=== PATIENT | male | born 2000 | race Caucasian/White ===

== ENCOUNTER 2021-06-11 10:59 | Emergency (ER) | payer OTHER, SELFPAY ==
[2021-06-11 11:21] VITALS: BP 146/101; PULSE 92; RESP 18; TEMP 36.4; O2SAT 98
--- NOTE | 2021-06-11 11:58 | ED.URI ---
HPI - URI/Sore Throat General Chief Complaint: Upper Respiratory Infection Stated Complaint: Sore Throat,Cough Time Seen by Provider: 06/11/21 11:59 Source: patient, RN notes reviewed and old records reviewed Mode of arrival: ambulatory Limitations: no limitations History of Present Illness HPI Narrative: 20-year-old male who presents to [facility] with complaints of sore throat and cough which started 2 nights ago with increasing pain to throat especially aggravated by swallowing. Patient states that he is unknown if any fever but has had chills and sweats. Patient denies any chest pain or any shortness of breath, he denies any headache, nausea or vomiting or diarrhea.Patient reports that he ahs been taking Ibuprofen for his symptoms. MD elicited complaint: cough and sore throat Severity: mild (3) Pain scale (0-10): 3 Description of mucous: clear Able to tolerate fluids by mouth: Yes Exacerbating factors: swallowing Associated symptoms: chills, rhinorrhea, nasal congestion, sore throat and cough Treatments prior to arrival: ibuprofen Related Data Home Medications Medication Instructions Recorded Confirmed No Home Medications 06/11/21 06/11/21 Allergies Allergy/AdvReac Type Severity Reaction Status Date / Time No Known Allergies Allergy Verified 06/11/21 12:02 Review of Systems Review of Systems: CONSTITUTIONAL: unknown if fever,positive for chills, or sweats. EYES: Denies visual changes, redness, or discharge. ENT: Positive rhinorrhea, congestion, sore throat, no otalgia. CARDIOVASCULAR: Denies chest pain, palpitations, or edema. RESPIRATORY: positive for cough denies dyspnea. GASTROINTESTINAL: Denies abdominal pain, nausea, vomiting, or diarrhea. GENITOURINARY: Denies dysuria or hematuria. SKIN: Denies rash or itching. MUSCULOSKELETAL: Denies back pain, joint pain, or myalgia. NEUROLOGIC: Denies headache, numbness, or weakness. PSYCHIATRIC: Denies anxiety or depression. All systems reviewed & are unremarkable except as noted in HPI and below PMFSH Past Medical History Medical History (Updated 06/12/21 @ 00:01 by Franky Mccarthy) CRISTY (obstructive sleep apnea) Surgical History Surgical History (Updated 06/12/21 @ 00:15 by Shabnam Pierce NP) History of placement of ear tubes Social History Social History (Updated 06/12/21 @ 00:14 by Shabnam Pierce NP) Smoking status: Never smoker Alcohol intake: current Alcohol use details: social Substance use: never Living arrangements: with family Gender identity (if verbalized by the patient): Male Comments At time of signature, agree with nursing past medical, surgical, social and family history. There is no relevant family history pertinent to the presenting complaint Exam Narrative: GENERAL: Well-appearing, well-nourished,obese and in no acute distress. HEAD: Normocephalic, atraumatic. EYES: PERRLA and EOMI. ENT: Nares red with clear rhinorrhea no epistaxis. Mucous membranes moist.TM's normal with good light reflex, throat red with noted tonsil swelling and redness, some post nasal drainage present NECK: Supple.lymphadenopathy noted. CHEST: Clear to auscultation. No respiratory distress.SAO2 98% on room air, cough noted. HEART: Regular rate and rhythm. No murmur heard. Normal peripheral pulses. ABDOMEN: Soft, nontender, nondistended, normal active bowel sounds. EXTREMITIES: Normal range of motion. No edema. SKIN: Warm, dry, no rash. NEURO: No focal deficits. Alert and oriented x3. Course Course Level of Care: Express Care Visit Vital Signs Vital signs: Vital Signs Temperature 36.4 C L 06/11/21 11:21 Pulse Rate 92 06/11/21 11:21 Respiratory Rate 18 06/11/21 11:21 Blood Pressure 146/101 H 06/11/21 11:21 Pulse Oximetry 98 06/11/21 11:21 Temperature 36.4 C L 06/11/21 11:21 Pulse Rate 92 06/11/21 11:21 Respiratory Rate 18 06/11/21 11:21 Blood Pressure 146/101 H 06/11/21 11:21 Pulse Oximetry 98
== END 2021-06-11 12:20 | disposition home or self-care (01) ==
PROVIDERS: Emergency Provider Registered Nurse
DX: J02.0 Streptococcal pharyngitis (principal); G47.33 Obstructive sleep apnea (adult) (pediatric)
CPT/HCPCS: 87880; 99213; G0463

== ENCOUNTER 2023-10-26 17:15 | Emergency (ER) | payer OTHER, SELFPAY ==
[2023-10-26 17:29] VITALS: BP 129/74; PULSE 99; RESP 18; TEMP 37; O2SAT 98
[2023-10-26 17:30] VITALS: BP 129/74; PULSE 99; RESP 18; TEMP 37; O2SAT 98
--- NOTE | 2023-10-26 17:46 | ED.ABDPAIN ---
HPI - Abdominal Pain General Chief Complaint: Abdominal Pain Stated Complaint: lower lt abdominal pain Time Seen by Provider: 10/26/23 17:36 Source: patient and RN notes reviewed Mode of arrival: ambulatory Limitations: no limitations History of Present Illness HPI narrative: Patient presents today with a 1.5 hour history of left lower quadrant tenderness and sweats. Denies any additional symptoms to include nausea, vomiting, diarrhea, urinary symptoms. Last bowel movement was normal this morning. Currently rates his pain 4/10, but this increases significantly with any movement. He has not tried any [id number] medication for symptoms prior to arrival. No history of abdominal surgeries or conditions. Related Data Home Medications Medication Instructions Recorded Confirmed No Home Medications 06/11/21 10/26/23 Allergies Allergy/AdvReac Type Severity Reaction Status Date / Time No Known Allergies Allergy Verified 10/26/23 17:30 Review of Systems Review of Systems: CONSTITUTIONAL: Denies body aches, fever, chills.+ sweats EYES: Denies visual changes, redness, or discharge. ENT: Denies rhinorrhea, congestion, sore throat, or otalgia. CARDIOVASCULAR: Denies chest pain, palpitations, or edema. RESPIRATORY: Denies cough or dyspnea. GASTROINTESTINAL: Denies nausea, vomiting, or diarrhea.+ abdominal pain GENITOURINARY: Denies dysuria or hematuria. SKIN: Denies rash, itching, or wounds. MUSCULOSKELETAL: Denies back pain, joint pain, or myalgia. NEUROLOGIC: Denies headache, numbness, tingling, or weakness. PSYCH: Denies depression or anxiety. [facility] Past Medical History Medical History CRISTY (obstructive sleep apnea) Surgical History Surgical History History of placement of ear tubes Social History Social History Smoking status: Never smoker Alcohol intake: current Alcohol use details: social Substance use: never Living arrangements: with family Gender identity (if verbalized by the patient): Male Comments At time of signature, I have reviewed and agree with nursing past medical, surgical, social and family history unless otherwise noted. Please see nursing chart for further information. There is no relevant family history pertinent to the presenting complaint Exam Narrative: GENERAL: Well-appearing, well-nourished, and in no acute distress. Diaphoretic HEAD: Normocephalic, atraumatic. EYES: EOMI. No redness or drainage. Conjunctivae normal. ENT: Mucous membranes pink and moist. NECK: Normal AROM. CHEST: No respiratory distress. Clear to auscultation. HEART: Regular rate and rhythm. No murmur appreciated. Normal peripheral pulses. ABDOMEN: Soft, nondistended, normal active bowel sounds. Left lower abdominal tenderness with rebound. EXTREMITIES: Normal range of motion. No edema. SKIN: Warm, dry, no rash. Capillary refill normal. Normal skin turgor. NEURO: No focal deficits. Alert and oriented x3. Gait steady. PSYCH: Normal affect. No signs of depression or anxiety. Course Course Level of Care: Express Care Visit Vital Signs Vital signs: Vital Signs Temperature 98.6 F 10/26/23 17:29 Pulse Rate 99 10/26/23 17:29 Respiratory Rate 18 10/26/23 17:29 Blood Pressure 129/74 10/26/23 17:29 Pulse Oximetry 98 10/26/23 17:29 Oxygen Delivery Room Air 10/26/23 17:29 Temperature 98.6 F 10/26/23 17:30 Pulse Rate 99 10/26/23 17:30 Respiratory Rate 18 10/26/23 17:30 Blood Pressure 129/74 10/26/23 17:30 Pulse Oximetry 98 10/26/23 17:30 Oxygen Delivery Room Air 10/26/23 17:30 Reviewed Transfer Transfered to: [place] Transportation: Other (Private vehicle) Transfer rationale: Abdominal pain Accepting physician: Joseph MDM - Abdominal Pain MDM [place]
== END 2023-10-26 17:45 | disposition short-term general hospital (02) ==
PROVIDERS: Emergency Provider Nurse Practitioner; Referring Provider Emergency Medicine
DX: R10.32 Left lower quadrant pain (principal)
CPT/HCPCS: 99212; G0463

== ENCOUNTER 2023-10-26 18:00 | Emergency (ER) | payer OTHER, SELFPAY ==
--- NOTE | ~2023-10-26 | CT_ITS ---
CT of the Abdomen and Pelvis: Indication: Abdominal pain Technique: 2.5 mm axial scans were obtained through the abdomen and pelvis following intravenous adm inistration of 100 cc of Omnipaque 350. Dose reduction technique was used on this scan by utilizing a utomated exposure control and iterative reconstruction technique. The dose-length product (DLP) was 1 856.14 mGy-cm. Findings: Scans through the lung bases demonstrate a 5 mm right basilar pulmonary nodule (axial imag e 26).. There is diffuse hepatic steatosis. The spleen, pancreas, gallbladder, adrenals and kidneys are withi n normal limits. No evidence of aortic aneurysm. No lymphadenopathy. There is focal inflammatory change at the proximal sigmoid colon adjacent to several diverticula with mild wall thickening, compatible with acute mild diverticulitis. No abscess or free air. No bowel ob struction. Images through the pelvis were performed. Urinary bladder unremarkable. No pelvic mass seen. No ascit es. Impression: Acute sigmoid diverticulitis, as detailed above. No abscess or free air. Diffuse hepatic steatosis. 5 mm right basilar pulmonary nodule. According to Fleischner Society criteria, for a low-risk patient , no further follow-up required. For a high-risk patient, consider 12 month follow-up CT. Reviewed, dictated and finalized at location . Impression: Acute sigmoid diverticulitis, as detailed above. No abscess or free air. Diffuse hepatic steatosis. 5 mm right basilar pulmonary nodule. According to Fleischner Society criteria, for a low-risk patient, no further follow-up required. For a high-risk patient, consider 12 month follow-up CT.
[2023-10-26 18:09] VITALS: BP 134/74; PULSE 98; RESP 18; TEMP 36.6; O2SAT 99
[2023-10-26 20:25] LABS: Add Urine Microscopic? NO; Appearance Urine Clear (Clear); Bilirubin Urine Negative (Negative); Blood Urine Negative (Negative); Color Urine Yellow (Yellow); Glucose Urine UA Negative (Negative); Ketones Urine Negative (Negative); Leukocyte Esterase Ur Negative LEU/UL (Negative); Nitrate Urine Negative (Negative); Protein Urine Negative (Negative); Specific Grav Ur 1.021 (1.001-1.035); Urobilinogen Urine 0.2 mg/dL (<2.0); pH Urine 5.5 (5.0-9.0)
[2023-10-26 20:26] LABS: Basophils Absolute Auto 0.1 K/mm3 (0.0-0.1); Basophils Percent Auto 0.3 % (0.2-1.2); Eosinophils Percent Auto 0.1 % (0-4.4); Hematocrit 45.8 % (42.0-52.0); Hemoglobin 15.8 g/dL (14.0-18.0); Immature Granulocyte Absolute 0.08 K/mm3 (0.00-0.031); Immature Granulocyte Percent A 0.4 % (0-0.5); Lymphocytes Absolute Auto 1.27 K/mm3 (0.9-3.2); Lymphocytes Percent Auto 6.9 % (18.3-44.2); Mean Corpuscular HGB Conc 34.5 g/dl (32-36); Mean Corpuscular Volume 95.6 fl (80-100); Mean Platelet Volume 10.1 fl (7.4-10.4); Monocytes Absolute Auto 0.7 K/mm3 (0.1-0.6); Monocytes Percent Auto 3.7 % (2.6-8.5); Neutrophils Absolute Auto 16.3 K/mm3 (1.3-6.7); Neutrophils Percent Auto 88.6 % (45.5-73.1); Platelet Count Result 226 k/mm3 (150-375); Red Blood Count 4.79 M/mm3 (4.6-6.20); Red Cell Distribution Width 13.3 % (11.5-14.5); White Blood Count 18.4 K/mm3 (4.5-10.0)
[2023-10-26 20:37] LABS: Alanine Aminotransferase 135 U/L (6-50); Albumin Level 4.8 g/dL (3.5-5.1); Alkaline Phosphatase 59 U/L (38-126); Anion Gap 14 mmol/L (4-12); Aspartate Amino Transferase 104 U/L (17-59); Bilirubin,Total 0.9 mg/dL (0.2-1.3); Blood Urea Nitrogen 14 mg/dL (9-20); Calcium 9.3 mg/dL (8.4-10.2); Carbon Dioxide 23 mmol/L (22-30); Chloride 99 mmol/L (98-107); Estimated CRCL calculation 142 ml/min; Estimated Glomerular Filt Rate > 60; Glucose 125 mg/dL (65-110); Lipase 56 U/L (23-300); Potassium 4.6 mmol/L (3.4-5.0); Sodium 136 mmol/L (137-145)
[2023-10-26 21:46] VITALS: BP 153/86; PULSE 106; RESP 18; TEMP 37.3; O2SAT 98
--- NOTE | 2023-10-26 22:48 | ED.GENADULT ---
HPI - General Adult General Chief complaint: Abdominal Pain Stated complaint: LLQ pain Time Seen by Provider: 10/26/23 21:49 History of Present Illness HPI narrative: patient 23-year-old gentleman who presents emergency department with chief complaint of left lower quadrant pain. The patient reports pain started approximately 2 hours ago reports the pain is worse when he vomits denies nausea vomiting or diarrhea denies fever. Patient reports the pain is worsened whenever he hip bumps on the vehicle patient reports no prior abdominal surgery Related Data Allergies Allergy/AdvReac Type Severity Reaction Status Date / Time No Known Allergies Allergy Verified 10/26/23 18:00 Review of Systems Review of Systems: A 10 system review of systems was completed on the patient and is negative except for what is stated in the HPI. Nursing and ancillary documentation was reviewed. PMFSH Past Medical History Medical History CRISTY (obstructive sleep apnea) Surgical History Surgical History History of placement of ear tubes Social History Social History Smoking status: Never smoker Alcohol intake: current Alcohol use details: social Substance use: never Living arrangements: with family Gender identity (if verbalized by the patient): Male Exam Narrative: GENERAL: Well-appearing, well-nourished, and in no acute distress. HEAD: Normocephalic, atraumatic. EYES: PERRLA and EOMI. ENT: Nares clear, no rhinorrhea or epistaxis. Mucous membranes moist. NECK: Supple. CHEST: Clear to auscultation. No respiratory distress. HEART: Regular rate and rhythm. No murmur heard. Normal peripheral pulses. ABDOMEN: Soft, tenderness to palpation left lower quadrant, nondistended, normal active bowel sounds. EXTREMITIES: Normal range of motion. No edema. SKIN: Warm, dry, no rash. NEURO: No focal deficits. Alert and oriented x3. PSYCH: Normal mood and affect. Course Vital Signs Vital signs: Vital Signs Temperature 36.6 C 10/26/23 18:09 Pulse Rate 98 10/26/23 18:09 Respiratory Rate 18 10/26/23 18:09 Blood Pressure 134/74 10/26/23 18:09 Pulse Oximetry 99 10/26/23 18:09 Temperature 37.3 C 10/26/23 21:46 Pulse Rate 103 H 10/26/23 23:52 Respiratory Rate 13 10/26/23 23:52 Blood Pressure 145/76 H 10/26/23 23:52 Pulse Oximetry 99 10/26/23 23:52 Medical Decision Making MDM Narrative Medical decision making narrative: differential diagnosis includes diverticulitis, colitis, intra-abdominal infection, intra-abdominal abscess, appendicitis laboratory studies were obtained on the patient showed white count 18.4 electrolytes are within normal limits AST and ALT were slightly elevated at 104 and 135 respectively lipase was normal CT scan showed evidence of acute diverticulitis without abscess the patient is feeling much better and like to try outpatient therapy. The patient was started on Cipro and Flagyl Vital Signs Vital Signs: Vital Signs Temperature 36.6 C 10/26/23 18:09 Pulse Rate 98 10/26/23 18:09 Respiratory Rate 18 10/26/23 18:09 Blood Pressure 134/74 10/26/23 18:09 Pulse Oximetry 99 10/26/23 18:09 Temperature 37.3 C 10/26/23 21:46 Pulse Rate 103 H 10/26/23 23:52 Respiratory Rate 13 10/26/23 23:52 Blood Pressure 145/76 H 10/26/23 23:52 Pulse Oximetry 99 10/26/23 23:52 Lab Data 10/26/23 20:10 10/26/23 20:10 Labs: Lab Results 10/26/23 10/26/23 Range/Units 20:10 20:14 WBC 18.4 H (4.5-10.0) K/mm3 RBC 4.79 (4.6-6.20) M/mm3 Hgb 15.8 (14.0-18.0) g/dL Hct 45.8 (42.0-52.0) % MCV 95.6 (80-100) fl MCH 33.0 (26-34) pg MCHC 34.5 (32-36) g/dl RDW 13.3 (11.5-14.5) % Plt Count 226
[2023-10-26] MEDS: SODIUM CHLORIDE 0.9% IV 1,000 ML 999 ML IV CONT (23:19)
--- NOTE | 2023-10-26 23:45 | PC.NURSE ---
this rn assumed care of patient. this rn took patient report from CONSTANTINE Grossman.
[2023-10-26 23:52] VITALS: BP 145/76; PULSE 103; RESP 13; O2SAT 99
[2023-10-27] MEDS: metroNIDAZOLE 500 MG TABLET PO (01:46)
[2023-10-27] MEDS: CIPROFLOXACIN 500 MG TAB PO (01:46)
[2023-10-27 01:49] VITALS: BP 156/71; PULSE 98; RESP 20; O2SAT 100
== END 2023-10-27 01:49 | disposition home or self-care (01) ==
PROVIDERS: Emergency Provider Emergency Medicine
DX: K57.32 Diverticulitis of large intestine without perforation or abscess without bleeding (principal); G47.33 Obstructive sleep apnea (adult) (pediatric); K76.0 Fatty (change of) liver, not elsewhere classified; R91.1 Solitary pulmonary nodule
CPT/HCPCS: 36415; 74177; 80053; 81003; 83690; 85025; 96360; 96361; 99284; A9270; J7030; Q9967

== ENCOUNTER 2023-12-30 08:38 | Outpatient (CLI) | payer OTHER, SELFPAY ==
--- NOTE | ~2023-12-30 | CT_ITS ---
CT of the Abdomen and Pelvis: Indication: Diverticular Technique: 2.5 mm axial scans were obtained through the abdomen and pelvis following intravenous adm inistration of 100 cc of Omnipaque 350. Dose reduction technique was used on this scan by utilizing a utomated exposure control and iterative reconstruction technique. The dose-length product (DLP) was 1 797.34 mGy-cm. COMPARISON: 10/26/2023 Findings: Scans through the lung bases are unremarkable. There is diffuse hepatic steatosis. The spleen, pancreas, gallbladder, adrenals and kidneys are withi n normal limits. No evidence of aortic aneurysm. No lymphadenopathy. There is inflammatory change at the proximal sigmoid colon compatible with acute diverticular disease . Probable small focal contained microperforation or abscess adjacent, measuring 1.7 cm in size (axia l image 141). No bowel obstruction. Images through the pelvis were performed. Urinary bladder unremarkable. No pelvic mass seen. No ascit es. Impression: Acute diverticulitis of the proximal sigmoid colon with 1.7 cm small abscess or contained microperfor ation adjacent. Reviewed, dictated and finalized at location . Impression: Acute diverticulitis of the proximal sigmoid colon with 1.7 cm small abscess or contained microperforation adjacent.
== END 2023-12-30 08:39 | disposition home or self-care (01) ==
PROVIDERS: PCP Emergency Medicine; Visit Provider Emergency Medicine
DX: K57.32 Diverticulitis of large intestine without perforation or abscess without bleeding (principal)
CPT/HCPCS: 74177; Q9967

== ENCOUNTER 2024-02-05 10:14 | Outpatient (CLI) | payer OTHER, SELFPAY ==
--- NOTE | ~2024-02-05 | CT_ITS ---
CT of the Abdomen and Pelvis: Indication: Diverticulitis Technique: 2.5 mm axial scans were obtained through the abdomen and pelvis following intravenous adm inistration of 100 cc of Omnipaque 350. Dose reduction technique was used on this scan by utilizing a utomated exposure control and iterative reconstruction technique. The dose-length product (DLP) was 1 447.38 mGy-cm. COMPARISON: 12/30/2023 Findings: Scans through the lung bases are unremarkable. The liver, spleen, pancreas, gallbladder, adrenals and kidneys are within normal limits. No evidence of aortic aneurysm. No lymphadenopathy. There is mild inflammatory change adjacent to diverticula at the proximal sigmoid colon, compatible d iverticulitis, stable from prior exam. Stable suspected contained microperforation or small abscess.. No bowel obstruction. Images through the pelvis were performed. Urinary bladder unremarkable. No pelvic mass seen. No ascit es. Impression: Overall, no change from prior exam. Diverticulitis at the proximal sigmoid colon with stable possible small contained microperforation versus abscess. Reviewed, dictated and finalized at [facility]. CLASSER Impression: Overall, no change from prior exam. Diverticulitis at the proximal sigmoid colo n with stable possible small contained microperforation versus abscess.
== END 2024-02-05 10:15 | disposition home or self-care (01) ==
PROVIDERS: PCP Emergency Medicine; Visit Provider Surgery
DX: K57.21 Diverticulitis of large intestine with perforation and abscess with bleeding (principal)
CPT/HCPCS: 74177; Q9967

== ENCOUNTER 2024-09-06 17:44 | Inpatient (IN) | payer OTHER, SELFPAY ==
--- NOTE | ~2024-09-06 | CT_ITS ---
CLINICAL INDICATION: Left lower quadrant pain COMPARISON: 02/05/2024. TECHNIQUE: Multiple contiguous axial images of the abdomen and pelvis were performed following the ad ministration of with 100 mL Omnipaque-350 intravenous contrast The dose-length product (DLP) was 1495.60 mGy-cm. Automated exposure control and iterative reconstruction technique were employed. FINDINGS/OBSERVATIONS: Visualized lower thorax: The bilateral lung bases are clear. The heart is of normal size, without pericardial effusion. Small hiatal hernia is present. Liver: The liver demonstrates homogeneous enhancement and is not enlarged. Gallbladder and biliary system: The gallbladder is only minimally distended, and otherwise unremarkable. Pancreas: The pancreas enhances homogeneously without ductal dilatation. Spleen: The spleen enhances homogeneously and is not enlarged. Kidneys: The bilateral kidneys enhance symmetrically without hydronephrosis or renal calculi. Adrenal glands: Unremarkable. Gastrointestinal tract: Edematous mural thickening within the sigmoid colon with multiple diverticula and surrounding inflamm atory change. This inflammatory response extends into the central pelvis, involving the mesentery and multiple loops of adjacent small bowel. A contained perforation is identified (axial series, images 135 through 153) with surrounding phlegmo nous change, without discrete abscess formation (at this time). Appendix: The appendix is of normal caliber (axial series, images 115 through 120). Vasculature: Unremarkable. Lymph nodes: No pathologically enlarged or morphologically suspicious lymph nodes within the retroperitoneum or at the root of the mesentery. Pelvic structures: The bladder is distended, with mural thickening and surrounding inflammatory change. The prostate gland is not enlarged. Body wall and musculoskeletal: No significant degenerative disease within the lower thoracic or lumbosacral spine. IMPRESSION: Acute sigmoid diverticulitis with a contained perforation and surrounding phlegmonous change, without a drainable fluid collection (at this time). Short-term follow-up is recommended. Reviewed, dictated and finalized at location A. IMPRESSION: Acute sigmoid diverticulitis with a contained perforation and surrounding phleg monous change, without a drainable fluid collection (at this time). Short-term follow-up is recommended.
--- OUTSIDE RECORDS SUMMARY | 2024-09-06 17:46 | XMS_ITS | Encounter Summary ---
Author Organization [facility] Healthcare Address [address] [place] [address] Care Team Providers Care Curbstone Setter Name Role Phone Marcel Calle Primary Care Provid er Reason for Visit * Reason Comments Abdominal Cramping Abdominal cramping x 3 days 100.4 temp last pm Encounter Details Date Type Department Care Team (Late st Contact Info) Description 09/06/2024 5:15 PM CDT Office Visit [facility] at [address] [phone] Elkin Bhatti NP [address] [place] [address] [address] [place] [address] Abdominal pain (Primary Dx); Elevated blood pressure reading in office without diagnosis of hypertension; Left lower quadrant abdominal tenderness without rebound tenderness; Tachycardia Social History Tobacco Use Types Packs/Day Years Used Date Smoking Tobacco: Never Assessed Sex and Gender Information Value Date Recorded Sex Assigned at Not on file 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[place] Gender Identity Not on file Sexual Orientation Not on file documented as of this encounter Last Filed Vital Signs Vital Sign Reading Time Taken Comments Blood Pressure 152/84 09/06/2024 5:05 PM CDT Pulse 108 09/06/2024 5:19 PM CDT Temperature 37.6 C (99.7 F) 09/06/2024 5:05 PM CDT Respiratory Rate 22 09/06/2024 5:19 PM CDT Oxygen Saturation 99% 09/06/2024 5:05 PM CDT Inhaled Oxygen Concentration - - Weight 143.8 kg (317 lb) 09/06/2024 5:05 PM CDT Height - - Body Mass Index - - documented in this encounter Plan of Treatment Not on file documented as of this encounter Visit Diagnoses Diagnosis Abdominal pain- Primary Abdominal pain, unspecified site Elevated blood pressure reading in office without diagnosis of hypertension Left lower quadrant abdominal tenderness without rebound tenderness Tachycardia Unspecified tachycardia documented in this encounter Care Teams Curbstone Setter Relationship Specialty Start Date End Date Marcel Calle PA [address] [place] [address] PCP - General Physician Ict Support Engineer 11/29/21 documented as of this encounter
--- OUTSIDE RECORDS SUMMARY | 2024-09-06 17:46 | XMS_ITS | Clinical Summary ---
Author Organization [facility] Address [facility] [place] [address] Care Team Providers Care Gaming Floor Supervisor Name Role Phone Marcel Calle Primary Care Provid er Allergies No known active allergies Medications No known medications Active Problems Problem Noted Date Diagnosed Date Class 3 severe obesity due t o excess calories with serious comorbidity and body mass index (BMI) of 60.0 to 69.9 in adult 02/18/2022 Coarctation of aorta (preductal) (postductal) Patent ductus arteriosus 08/30/2008 Attention deficit disorder (ADD) without hyperac tivity 08/30/2008 Ventricular septal defect 08/30/2008 Encounters Date Type Department Care Team Description 09/06/2024 5:15 PM CDT Office Visit [facility] at [address] [phone] Elkin Bhatti NP Abdominal pain (Primary Dx); Elevated blood pressure reading in office without diagnosis of hypertension; Left lower quadrant abdominal tenderness without rebound tenderness; Tachycardia from Last 3 Months Surgical History Surgery Date Site/Laterality Comments TRANSCATHETER OCCLUSION Transcatheter Occlusion - (Added by TW Conv) Social History Tobacco Use Types Packs/Day Years Used Date Smoking Tobacco: Never Assessed Sex and Gender Information Value Date Recorded Sex Assigned at Not on file 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 Gender Identity Not on file Sexual Orientation Not on file Obstetrics History Last Filed Vital Signs Vital Sign Reading Time Taken Comments Blood Pressure 152/84 09/06/2024 5:05 PM CDT Pulse 108 09/06/2024 5:19 PM CDT Temperature 37.6 C (99.7 F) 09/06/2024 5:05 PM CDT Respiratory Rate 22 09/06/2024 5:19 PM CDT Oxygen Saturation 99% 09/06/2024 5:05 PM CDT Inhaled Oxygen Concentration - - Weight 143.8 kg (317 lb) 09/06/2024 5:05 PM CDT Height 157.6 cm (5' 2.05) 08/21/2011 11:03 AM C DT Body Mass Index - - Plan of Treatment Health Maintenance Due Date Last Done Comments Depression Screening 1999 Hepatitis C Screening 1999 HPV Vaccines (1 - Male 3-dos e series) 09/25/2014 Regular Well Visit/Exam 18-64 09/25/2017 DTaP/Tdap/Td Vaccine (7 - Td or Tdap) 08/14/2020 08/14/2010, 09/28/2003, 03/30/2001, Additional history exists Covid-19 Vaccine ( - 2023-2 5 season) 2023 10/04/2020, 09/06/2020 Influenza Vaccine (Season Ended) 2024 04/10/19 13 Hepatitis B Screening Completed 03/30/2001 , 01/28/2000, 1999 Pneumococcal vaccine <65 Completed 002, 06/26/2000, 03/28/2000 Varicella Vaccines Completed 09/22/2007, 09/30/2000 Insurance [facility] CLAIMS [facility] CLAIMS Care Teams Gaming Floor Supervisor Relationship Specialty Start Date End Date Marcel Calle PA [address] [place] [address] PCP - General Physician Pharmacy Associate 11/29/21
--- OUTSIDE RECORDS SUMMARY | 2024-09-06 17:46 | XMS_ITS | Referral Summary ---
Author Organization [facility] Address [facility] [place] [address] Care Team Providers Care Boatswains Mate Name Role Phone Marcel Calle Primary Care Provid er Encounters Date Type Department Care Team Description 09/06/2024 5:15 PM CDT Office Visit [facility] at [address] [phone] Elkin Bhatti NP Abdominal pain (Primary Dx); Elevated blood pressure reading in office without diagnosis of hypertension; Left lower quadrant abdominal tenderness without rebound tenderness; Tachycardia from Last 3 Months Allergies No known active allergies Medications No known medications Active Problems Problem Noted Date Diagnosed Date Class 3 severe obesity due t o excess calories with serious comorbidity and body mass index (BMI) of 60.0 to 69.9 in adult 02/18/2022 Coarctation of aorta (preductal) (postductal) Patent ductus arteriosus 08/30/2008 Attention deficit disorder (ADD) without hyperac tivity 08/30/2008 Ventricular septal defect 08/30/2008 Social History Tobacco Use Types Packs/Day Years Used Date Smoking Tobacco: Never Assessed Sex and Gender Information Value Date Recorded Sex Assigned at Not on file 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
--- OUTSIDE RECORDS SUMMARY | 2024-09-06 17:46 | XMS_ITS | Continuity of Care Document ---
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 Name Role Phone Umesh Smiley MD Unavailable Unavailable Allergies, Adverse Reactions, Alerts Substance Reaction Status Criticality No Known Allergies Active No Inform ation Medications Medication Instructions Dosage Effective Dates (start - stop) Status Comments prednisone 20 mg tablet take 3 Tablet by oral route every day 60 MG - Active clotrimazole-betameth asone 1 %-0.05 % topical cream apply by topical route 2 times every day for 2 weeks to the affected and surrounding areas of skin in the morning and evening 0.00 - Active Procedures Procedure Date OFFICE/OUTPATIENT VISIT, EST OFFICE/OUTPATIENT VISIT, EST OFFICE/OUTPATIENT VISIT, EST OFFICE/OUTPATIENT VISIT, EST OFFICE/OUTPATIENT VISIT, EST OFFICE/OUTPATIENT VISIT, EST PREV VISIT, NEW, AGE 18-39 OFFICE/OUTPATIENT VISIT, NEW Advance Directives Directive Yes / No Effective Date File Name No Information Encounters Encounter Description Practice Location Reason(s) For Visit Diagnoses Date Provider Providers Copied on Encounter OFFICE/OUTPA TIENT VISIT, EST [facility], [address] [place], [id number], [place] tel:[phone] [facility] rash1 (chief complaint) Allergic contact dermatitis due to other chemical products Baljit Calvo. [address] [place] [place], [place], [id number] , [place]. tel:[phone] OFFICE/OUTPA TIENT VISIT, [facility], [address], [place], [place], [id number], [place] tel:[phone] [facility] abd pain (chief complaint) Diverticulitis of large intestine w/o abscess w/o bleeding Apr-3 0-202 5 Baljit Calvo. [address], [place], [place], [address] , [place]. tel:[phone] OFFICE/OUTPA TIENT VISIT, [facility], [address], [place], [place], [address], [place] tel:[phone] [facility] glucose (chief complaint) HLP (chief complaint) LFT (chief complaint) iron (chief complaint) diverticul tisi1 (chief complaint) Mixed hyperlipidemiaHyper glycemiaFatty liverDisorder of iron metabolism, unspecifiedSolitary lung noduleAlcohol dependence, uncomplicated May- 0- 5 Baljit Calvo. [address], [place], [place], [id number] , [place]. [phone] OFFICE/OUTPA TIENT VISIT, [facility], [address], [place], [place], [address], [place] tel:[phone] [facility] alcohol1 (chief complaint) diverticul itis1 (chief complaint) Diverticulitis of intestine w/ abscess w/o bleedingAlcohol dependence, uncomplicated - 4 Baljit Calvo. [address], [place], [place], [address] , [place]. [phone] OFFICE/OUTPA TIENT VISIT, [facility], [address], [place], [place], [address], [place] tel:[phone] [facility] diverticul itis1 (chief complaint) alcohol1 (chief complaint) Diverticulitis of intestine w/ abscess w/o bleedingAlcohol dependence, uncomplicated 4-202 4 Baljit Calvo. [address], [place], [place], [address] , [place]. [phone] OFFICE/OUTPA TIENT VISIT, EST [facility], [address], [place], [place], [address], [place] tel:[phone] [facility] glucose1 (chief complaint) HLP (chief complaint) LFT (chief complaint) iron1 (chief complaint) diverticul itis1 (chief complaint) HyperglycemiaMixed hyperlipidemiaFatty liverDisorder of iron metabolism, unspecifiedAlcohol dependence, uncomplicatedDivert iculitis of intestine w/ abscess w/o bleeding 4 Baljit Calvo. [address], [place], [place], [address] , [place]. [phone] PREV VISIT, NEW, AGE 18-39 [facility], [address], [place], [place], [address], [place] tel:[phone] [facility] physical (chief complaint) Encounter for general adult medical exam w abnormal findingsDiverticuli tis of large intestine w/o abscess w/o bleedingFatty liverSolitary lung noduleAlcohol dependence, uncomplicated 4 Baljit Calvo. [address], [place], [place], [address] , [place]. tel:[phone] Family History Family Member Type Diagnosis Age At Onset Father Problem Alive and well Mother Problem Alive and well Sister Problem Alive and well Payers Payer name Insurance type Covered republican ID Patricia streeter(s) [facility] [id number] Social History Type Description Quantity Date Captured Comments Alcohol Use Details beer > 5 glasses daily 25 Caffeine Use Details Unknown Tobacco Use Status Cigarette smoker Smoking Status Current some day smoker 024 Sex Male Vital Signs Date / Time: Height Weight BMI Pulse Rate Blood Pressure Temperature Respiratory Rate Body Surface Area Head Circumference BMI percentile Pulse Ox Inhaled Ox 12:05 PM 77.00 in 312.20 lbs 37.0 2 kg/m eter (2) 87 /min 120/80 mm[Hg] 98.0 F 16 /min Chief Complaint And Reason For Visit From encounter dated '08/30/2024 12:01'. rash1 (chief complaint). Description: pt was hit by the support part of the steel fan on left side of face 3 days ago by accident and he notices some mildly itching rash left lower quadrant and also around upper chest and neck area shortly afterward Pt denies any headache or vision change Pt deniesany abd pain. Pt denies any dysphagia or sob. Pt denies any abd pain Plan Of Treatment Date Type Action Status Referral Referred To: Luis Hong [address] [place] [address], [phone] Ordered: Referrals: Luis Hong. Evaluate and treat ordered Referral Ordered: CT ABDOMEN&PELVIS W/CONTRAST ordered History Of Present Illness Encounter Date Complaint History Of Prese nt Illness rash1 pt was hit by th e support part of the steel fan on left side of face 3 days ago by accident and he notices some mildly itching rash left lower quadrant and also around upper chest and neck area shortly afterward Pt denies any headache or vision change Pt denies any abd pain. Pt denies any dysphagia or sob. Pt denies any abd pain abd pain Pt c/o acute and persistent left lower quadrant abd pain for one week Pt denies any fever, chill, loss of appetite. Pt denies any nausea, vomiting, diarrhea, blood in stool, etc .Pt has history of recurrent diverticulitis which resemble the current symptoms. HLP Pt has HLP. Pt i s working on diet LFT Pt has history o f high LFT due to alcohol. Pt quit alcohol x 3 months Pt is off neurontin and campral. glucose Pt has history o f high glucose Pt denies any polyuria, polydipsia iron Pt has history o f mildly high iron. diverticultisi1 Pt had colonosco py done which showed diverticulosis. Pt denies any abd pain alcohol1 Pt has alcohol d ependency Pt has been taking neurontin and campral and he thinks that he is doing very well and he has not had any alcohol for two weeks Pt denies any withdraw symptoms Pt feels fine now Pt denies any tremor, etc. diverticulitis1 Pt has recent hi story of diverticulitis Pt had another CT done by surgeon which showed stable mild diverticulitis with abscess Pt clinically doing much better Pt has not had any abd pain for several weeks Pt denies any nausea, vomiting, diarrhea, blood in stool, etc. diverticulitis1 Pt has recurrent diverticulitis Pt has abscess on recent CT Pt tried two rounds of abx and he still has some left lower abdominal pain. Pt denies any fever, chill Pt denies any nausea, vomiting .Pt did see surgeon and he will do another CT today and follow up with surgeon again alcohol1 Pt has alcohol d ependency and he has difficulty quitting alcohol. Pt still drinks 6-7 beers and hard liquor multiple times per day. Pt failed naltrexone. Pt came in with him mom today and both feel that alcohol is destroying his health and life at this point .He does have elevated LFT due to alcohol. glucose Pt has high gluc ose .Pt denies any polyuria, polydipsia. HLP Pt has HLP Pt is not on any diet LFT Pt has high LFT. Pt does not have not have hepatitis. Pt denies any abd pain or jaundice Pt has not been able to cut down much alcohol with naltrexone. Pt still has urge to drink alcohol. iron Pt has borderlin e high iron diverticulitis1 Pt has recent ac [place] diverticulitis. Pt was treated with abx. Pt states that he notices increasing level of left lower abdomen pain for the past week Pt had Ct done which showed acute diverticulitis with small abscess. Pt denies any fever, chill. physical Pt needs annual physical pt has history of alcohol dependency and he used to drink 1 bottle of liquor per day and he is cutting down to 5 beer per day recently He has history of elevated liver enzymes with fatty liver on ultrasound. Pt denies any abd pain or GERD. Pt denies any constipation or diarrhea Pt was diagnosed with acute diverticulitis 6 weeks ago with LLQ pain and he was treated with cipro and flagyl and his LLQ pain mostly resolved but he still feel some dull ache frequently, especially when he lie down at night with positional change Pt denies any blood in stool. Pt denies any bowel change .Pt denies any ever, chill. Instructions Date Instruction Additional Infor misael No Information Assessments Type Assessment Date assessment Allergic contact dermatitis due to other chemical products Mental Status Date Cognitive Assessment Orientation - Commerce ed to time, place, person, situation.
--- OUTSIDE RECORDS SUMMARY | 2024-09-06 17:46 | XMS_ITS | Continuity of Care Document ---
Author Name [facility] Organization [facility] Care Team Providers Care Curator [employer] Name Role Phone [facility] Unavailable Unavailable Problems Combined list of problems from Department of Defense and Veterans Affairs facilities. It does not include entries that were removed or entered in error. Problem Status Onset Date Problem Type Date of Resolution Comments Source visit for: 13+ year visit Active Condition [facility] CONTACT DERMATITIS Inactive Condition [facility] MOLLUSCUM CONTAGIOSUM Inactive Condition DoD FOLLICULITIS Inactive Condition DoD OBESITY Active Condition DoD diarrhea Active Condition [facility] Parent Education: Active Condition [facility] Outpatient Physician Consultation Active Condition [facility] PRIMARY SNORING Active Condition [facility] visit for: issue repeat prescription for medication Inactive Condition DoD visit for: 11-12 year visit Active Condition [facility] ALLERGIC RHINITIS Active Condition [facility] visit for: issue repeat prescription Inactive Condition [facility] ATTENTION-DEFICIT HYPERACTIVITY DISORDER Active Condition [facility] WARTS PLANTAR Active Condition [facility] 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 Home care instructions including tape coverage and OTC acid therapy discussed. May RTC in 2-3 weeks for re-treatment if needed. [facility] OTITIS EXTERNA ACUTE LEFT EAR Inactive Condition No swimming u ntil sx are gone, use ear drops if swimming is necessary after treatment with OTC drying agent or strength white vinegar drops for 5 min. No earplugs.Only use alcohol agents for prevention, not treatment. RTC for increased pain, swelling of ear. Use abx drops as directed. [facility] OTITIS MEDIA ACUTE MUCOID RIGHT EAR Active Condition DoD Demonstrated Behavior Active Condition Will send to Dr Jolly Jorgensen given concerns for learning disability and low Sundance scores. Father understands and agrees with plan.Sundance Assessment Scale, parents: Inattentive 4 out of 9 Hyperactive: 3 out of 9Broussardderbilt Assessment Scale, teacher: Inattentive: 4 out of 9 Hyperactive: 4 out of 9 DoD COMMUNITY-ACQUIRE D PNEUMONIA Active Condition Use antipryreti cs at appropriate doses for age/wt, only if helpful.Push fluidsIf an infant, may use nasal suction and saline to help relieve the nasal congestion and moistened airway passages. RTC for worsening status, any resp distress, Poor PO/UO, fevers for over 5 days total. DoD visit for: refer patient without exam or treatment Inactive Condition will hold on referral until child is re-eval in Pediatrics ophthamology. referral placed in chcs I DoD ASTIGMATISM - REGULAR Active Condition DoD REFRACTIVE ERROR - HYPERMETROPIA Active Condition DoD headache Inactive Condition DoD earache Inactive Condition reassure. described normal function of existing tube without evidence of infection. suggest close monitor for increased fever, drainage or pain and return to clinic as needed. tylenol or motrin as needed for pain and allow child to lay with sore ear down if mother presumes additional drainage. DoD Vaccines Prophylactic Need Against Combinations Of Diseases Inactive Condition DoD Immunizations Reviewed And Current Inactive Condition Per IRMA review. DoD Established Patient Age 5-11 School / Camp Physical Inactive Condition Completed all f orms with regards to school physical. Provided IRMA form to parent for school files. DoD visit for: postsurgical exam Inactive Condition DoD CERUMEN IMPACTION Inactive Condition DoD Administrative Evaluation Services Inactive Condition wax or cholesteatoma is not an emergency. has appt with Dr. Walker next week, they have nothing available sooner for non emergencies. child not in any pain per mom. instructed mother to keep that appt. DoD FOREIGN BODY - RIGHT EAR AUDITORY CANAL Inactive Condition I am unsure i f the object in his right ear canal is a cholestetoma or a large piece of wax. However, what I can see is a small rim of the TM that appears normal. Will call Dr. Walker and ask if he can see this young man at some point this week for definit DoD SLEEP TERROR DISORDER Active Condition Recommended mot her wake child 15 minutes prior to onset of sleep disturbances and continue this for 1 week. Mother understands plan and will institute tonite. She is to follow up if things do not improve. DoD OTITIS MEDIA SUPPURATIVE RIGHT EAR Active Condition Pt has patent P E tubes in bilat ears, will give floxin drops for current infection. No need for systemic antibiotic as infection is able to drain. Instructed MOP to give plenty of fluids, motrin/tylenol as needed for fever. RTC if sympotms worsen or do DoD visit for: administrative purpose Inactive Condition spoke with dr romo office and they said that the appt real estate clerk always tells the pt's that they need referral letter from their doctor, but if they have the referral that is all that is needed. she will doublecheck with the doctor on mon, since they are not there today and will call backspoke with dr jorgensen today and she said that according to the coding class that they attended a short note is requested from the provider-name of doctor referring to her, the problem is possible and pt's name. fax to [phone]. DoD UPPER RESPIRATORY INFECTION Inactive Condition URI. Expect thi s illness to last from 7-10 days. Provide ample rest, fluids, motrin or tylenol for pain. Assess hydration status every 6 hours by checking urine output, tear production, moisture of mouth and skin turgor (discussed with parent). DoD PHARYNGITIS ACUTE Inactive Condition DoD visit for: follow-up exam Inactive Condition Will check a throat culture just to be sure he doesn't have any evidence of GABHS pharyngitis. However given the recent use of antistreptococcal antibiotics it is unlikely. 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 Patient Checkup Child 5-11 Inactive Condition DoD NORMAL EXAMINATION Inactive Condition Today's results show normal hearing acuity in both ears with PET in place and patent. SD scores were excellent bilaterally. DPOAEs could not be measured --> no seal.f/u with ENT as scheduled. DoD visit for: preoperative exam Inactive Condition DoD EUSTACHIAN TUBE DYSFUNCTION Active Condition DoD HEARING LOSS Active Condition DoD CONDUCTIVE HEARING LOSS Active Condition DoD visit for: ears, nose, and throat exam Inactive Condition DoD visit for: screening exam ear disorders Inactive Condition DoD Allergies, Adverse Reactions, Alerts Combined list of allergies from Department of Defense and Veterans Affairs facilities. It does not include entries that were removed or entered in error. Substance Category Reaction Severity Reaction type Status Date Reported Comments Source No Known Allergies Drug allergy (disorder) active 05/22/2016 [facility] ([facility]) Immunizations Combined list of available immunizations from the Department of Defense and Veterans Affairs facilities. Immunization Series Date Given Administered By Site Reaction Lot Number CVX Code Drug Rn Palliative Care Status Comments Source COVCADsurf Vaccine Moderna 2020 zzL t Arm [id number] complet ed COVID Vaccine Moderna 10/04/20 Given Ambulat ory Pharmac y SARS-COV-2 (COVID-19) vaccine, mRNA, spike protein, LNP, preservative free, 100 mcg or 50 mcg dose 1 2020 Unknown, Provider [id number] Moderna US, Inc. (MOD) complet ed SARS-COV- 2 (COVID-19 ) vaccine, mRNA, spike protein, LNP, preservat arturo free, 100 mcg or 50 mcg dose DoD COVID Vaccine Moderna 2020 [facility] Arm [id number] complet ed COVID Vaccine Moderna 09/06/20 Given Ambulat ory Pharmac y SARS-COV-2 (COVID-19) vaccine, mRNA, spike protein, LNP, preservative free, 100 mcg or 50 mcg dose 1 2020 Unknown, Provider [id number] Moderna [employer] (MOD) complet ed SARS-COV- 2 (COVID-19 ) vaccine, mRNA, spike protein, LNP, preservat arturo free, 100 mcg or 50 mcg dose DoD Human Papillomaviru s 9-valent vaccine 2017 [facility] Arm [id number] Merck & Company Inc complet ed Human Papilloma virus 9-valent vaccine 05/23/17 Given Ambulat ory Pharmac y Human Papillomaviru s 9-valent vaccine 1 2017 Unknown, Provider [id number] 165 Merck (MSD) complet ed Human Papilloma virus 9-valent vaccine DoD [facility]ill[facility]aviru s 9-valent [id number] [facility] [employer] Company Inc complet ed Human Papilloma virus 9-valent vaccine 12/27/16 Given Ambulat ory Pharmac y Human Papillomaviru s 9-valent vaccine 1 2016 Unknown, Provider [id number] 165 Merck (MSD) complet ed Human Papilloma virus 9-valent vaccine DoD meningococcal A,C,Y,W-135 (MCV4P) 2016 [facility] Arm [id number] sanofi pasteur complet ed meningoco ccal A,C,Y,W-1 35 (MCV4P) 10/24/16 Given Ambulat ory Pharmac y Human Papillomaviru s 9-valent vaccine [facility] [id number] 165 [employer] Company Inc complet ed Human Papilloma virus 9-valent vaccine 10/24/16 Given Ambulat ory Pharmac y meningococcal polysaccharid e (groups A, C, Y and W-135) diphtheria toxoid conjugate vaccine (MCV4P) 1 2016 Unknown, Provider [id number] Sanofi Pasteur (PMC) complet ed meningoco ccal polysacch aride (groups A, C, Y and W-135) diphtheri a toxoid conjugate vaccine (MCV4P) DoD Human Papillomaviru s 9-valent vaccine 1 2016 Unknown, Provider [id number] 165 Merck (MSD) complet ed Human Papilloma virus 9-valent vaccine DoD influenza, seasonal, injectable 2012 [facility] Arm [id number] sanofi pasteur complet ed influenza , seasonal, injectabl e 04/10/12 Given Ambulat ory Pharmac y Influenza, seasonal, injectable 1 2012 Unknown, Provider [id number] Sanofi Pasteur (PMC) complet ed Influenza , seasonal, injectabl e DoD meningococcal A,C,Y,W-135 (MCV4P) 2011 [facility] Arm [id number] 114 sanofi pasteur complet ed meningoco ccal A,C,Y,W-1 35 (MCV4P) 09/13/11 Given Ambulat ory Pharmac y meningococcal polysaccharid e (groups A, C, Y and W-135) diphtheria toxoid conjugate vaccine (MCV4P) 1 2011 Unknown, Provider [id number] 114 Sanofi Pasteur (PMC) complet ed meningoco ccal polysacch aride (groups A, C, Y and W-135) diphtheri a toxoid conjugate vaccine (MCV4P) DoD tetanus, diphtheria, acellular pertu is 2010 [facility] Arm [id number] 115 [facility] complet ed tetanus, diphtheri a, acellular pertussis 08/14/10 Given Ambulat ory Pharmac y tetanus toxoid, reduced diphtheria toxoid, and acellular pertu is vaccine, adsorbed 1 2010 Unknown, Provider [id number] 115 [facility] ([facility]) complet ed tetanus toxoid, reduced diphtheri a toxoid, and acellular pertussis vaccine, adsorbed DoD varicella virus vaccine 2007 zzLef t Arm [id number] Merck & Company Inc complet ed varicella virus vaccine 09/22/07 Given Ambulat ory Pharmac y varicella virus vaccine 2 2007 Unknown, Provider [id number] Merck (MSD) complet ed varicella virus vaccine DoD Hep A, pediatric, unspecified formul 2005 zzLef t Arm [id number] GlaxoSmithK[employer] ne complet ed Hep A, pediatric , unspecifi ed formul 01/23/06 Given Ambulat ory Pharmac y hepatitis A vaccine, pediatric dosage, unspecified formulation 2 2005 Unknown, Provider [id number] [facility] ([facility]) complet ed hepatitis A vaccine, pediatric dosage, unspecifi ed formulati on DoD Hep A, pediatric, unspecified formul 2005 zzLef t Arm [id number] 31 GlaxoSmithK[employer] ne complet ed Hep A, pediatric , unspecifi ed formul 07/01/05 Given Ambulat ory Pharmac y hepatitis A vaccine, pediatric dosage, unspecified formulation 1 2005 Unknown, Provider [id number] 31 [facility] ([facility]) complet ed hepatitis A vaccine, pediatric dosage, unspecifi ed formulati on DoD tuberculin purified protein derivative 2003 Transcr ibed 96 Unknown complet ed tuberculi n purified protein derivativ e 09/30/03 Given Ambulat ory Pharmac y poliovirus vaccine, inactivated 2003 Transcr ibed 10 Unknown complet ed polioviru s vaccine, inactivat ed 09/28/03 Given Ambulat ory Pharmac y measles/mumps /rubella virus vaccine 2003 Transcr ibed 03 Unknown complet ed measles/m umps/rube lla virus vaccine 09/28/03 Given Ambulat ory Pharmac y DTaP 2003 Transcr ibed 20 Unknown complet ed DTaP 09/28/03 Given Ambulat ory Pharmac y measles, mumps and rubella virus vaccine 2 2003 Unknown, Provider Transcr ibed 03 Other (OTH) complet ed measles, mumps and rubella virus vaccine DoD poliovirus vaccine, inactivated 4 2003 Unknown, Provider Transcr ibed 10 Other (OTH) complet ed polioviru s vaccine, inactivat ed DoD diphtheria, tetanus toxoids and acellular pertu is vaccine 5 2003 Unknown, Provider Transcr ibed 20 Other (OTH) complet ed diphtheri a, tetanus toxoids and acellular pertussis vaccine DoD haemophilus b-hepatitis B vaccine 2001 Transcr ibed 51 Unknown complet ed haemophil us b-hepatit is B vaccine 03/30/01 Given Ambulat ory Pharmac y DTaP 2001 Transcr ibed 20 Unknown complet ed DTaP 03/30/01 Given Ambulat ory Pharmac y pneumococcal 7-valent vaccine 2001 Transcr ibed 100 Unknown complet ed pneumococ bartolo 7-valent vaccine 03/30/01 Given Ambulat ory Pharmac y diphtheria, tetanus toxoids and acellular pertu is vaccine 4 2001 Unknown, Provider Transcr ibed 20 Other (OTH) complet ed diphtheri a, tetanus toxoids and acellular pertussis vaccine DoD Haemophilus influenzae type b conjugate and Hepatitis B vaccine 3 2001 Unknown, Provider Transcr ibed 51 Other (OTH) complet ed Haemophil us influenza e type b conjugate and Hepatitis B vaccine DoD pneumococcal conjugate vaccine, 7 valent 3 2001 Unknown, Provider Transcr ibed 100 Other (OTH) complet ed pneumococ bartolo conjugate vaccine, 7 valent DoD varicella virus vaccine 2000 Transcr ibed 21 Unknown complet ed varicella virus vaccine 09/30/00 Given Ambulat ory Pharmac y measles/mumps /rubella virus vaccine 2000 Transcr ibed 03 Unknown complet ed measles/m umps/rube lla virus vaccine 09/30/00 Given Ambulat ory Pharmac y measles, mumps and rubella virus vaccine 1 2000 Unknown, Provider Transcr ibed 03 Other (OTH) complet ed measles, mumps and rubella virus vaccine DoD varicella virus vaccine 1 2000 Unknown, Provider Transcr ibed 21 Other (OTH) complet ed varicella virus vaccine DoD pneumococcal 7-valent vaccine 2000 Transcr ibed 100 Unknown complet ed pneumococ bartolo 7-valent vaccine 06/26/00 Given Ambulat ory Pharmac y poliovirus vaccine, inactivated 2000 Transcr ibed 10 Unknown complet ed polioviru s vaccine, inactivat ed 06/26/00 Given Ambulat ory Pharmac y poliovirus vaccine, inactivated 3 2000 Unknown, Provider Transcr ibed 10 Other (OTH) complet ed polioviru s vaccine, inactivat ed DoD pneumococcal conjugate vaccine, 7 valent 2 2000 Unknown, Provider Transcr ibed 100 Other (OTH) complet ed pneumococ bartolo conjugate vaccine, 7 valent DoD DTaP 2000 Transcr ibed 20 Unknown complet ed DTaP 03/28/00 Given Ambulat ory Pharmac y pneumococcal 7-valent vaccine 2000 Transcr ibed 100 Unknown complet ed pneumococ bartolo 7-valent vaccine 03/28/00 Given Ambulat ory Pharmac y diphtheria, tetanus toxoids and acellular pertu is vaccine 3 2000 Unknown, Provider Transcr ibed 20 Other (OTH) complet ed diphtheri a, tetanus toxoids and acellular pertussis vaccine DoD pneumococcal conjugate vaccine, 7 valent 1 2000 Unknown, Provider Transcr ibed 100 Other (OTH) complet ed pneumococ bartolo conjugate vaccine, 7 valent DoD poliovirus vaccine, inactivated 1999 Transcr ibed 10 Unknown complet ed polioviru s vaccine, inactivat ed 01/28/00 Given Ambulat ory Pharmac y DTaP 1999 Transcr ibed 20 Unknown complet ed DTaP 01/28/00 Given Ambulat ory Pharmac y haemophilus b-hepatitis B vaccine 1999 Transcr ibed 51 Unknown complet ed haemophil us b-hepatit is B vaccine 01/28/00 Given Ambulat ory Pharmac y poliovirus vaccine, inactivated 2 1999 Unknown, Provider Transcr ibed 10 Other (OTH) complet ed polioviru s vaccine, inactivat ed DoD diphtheria, tetanus toxoids and acellular pertu is vaccine 2 1999 Unknown, Provider Transcr ibed 20 Other (OTH) complet ed diphtheri a, tetanus toxoids and acellular pertussis vaccine DoD Haemophilus influenzae type b conjugate and Hepatitis B vaccine 2 1999 Unknown, Provider Transcr ibed 51 Other (OTH) complet ed Haemophil us influenza e type b conjugate and Hepatitis B vaccine DoD DTaP 1999 Transcr ibed 20 Unknown complet ed DTaP 99 Given Ambulat ory Pharmac y haemophilus b-hepatitis B vaccine 1999 Transcr ibed 51 Unknown complet ed haemophil us b-hepatit is B vaccine 99 Given Ambulat ory Pharmac y poliovirus vaccine, inactivated 1999 Transcr ibed 10 Unknown complet ed polioviru s vaccine, inactivat ed 99 Given Ambulat ory Pharmac y poliovirus vaccine, inactivated 1 1999 Unknown, Provider Transcr ibed 10 Other (OTH) complet ed polioviru s vaccine, inactivat ed DoD diphtheria, tetanus toxoids and acellular pertu is vaccine 1 1999 Unknown, Provider Transcr ibed 20 Other (OTH) complet ed diphtheri a, tetanus toxoids and acellular pertussis vaccine DoD Haemophilus influenzae type b conjugate and Hepatitis B vaccine 1 1999 Unknown, Provider Transcr ibed 51 Other (OTH) complet ed Haemophil us influenza e type b conjugate and Hepatitis B vaccine DoD Encounters Combined list of: 1) Encounters from Department of Veterans Affairs facilities going backup to the last 18 months, not all VA inpatient encounters are included; 2) Encounters from the Department of Defense facilities going backup to 280 months. Location Location Details Encounter Type Encounter Number Reason For Visit Attending Provider ADM Date DC Date Status Disposition Source [facility] OUTPATIENT [id number] 3YO WITH PRIOR DIAGONS IS OF HEARING LOSS AND CHRONIC OME; ERICK GRIMES 07/24 Released w/o Limitations [facility]( Audiolo gy Svc [facility]) [facility]) OUTPATIENT [id number] JESSICA OVIEDO 12/17 Released w/o Limitations [facility]( [facility]iolo gy Svc BE) [facility] ([facility])(Ped iatrics) TELE CONSULT [id number] needs referra l stat RIZWAN LOPEZ 12/25 [facility] ([facility])(P ediatri cs) [facility] ([facility])([place] laryngolo gy) OUTPATIENT [id number] SAMY WALKER S 01/15 Released w/o Limitations [employer] [facility] [employer] ([facility])(O tolaryn gology) [facility] [employer] ([facility])([place] laryngolo gy) OUTPATIENT [id number] preop t-tube/ adenoid ectomy SAMY WALKER S 03/06 Released w/o Limitations [employer] [facility] [employer] ([facility])(O tolaryn gology) [facility] [employer] ([facility])([place] laryngolo gy) OUTPATIENT [id number] f/u from audio SAMY WALKER Dee 04/10 Released w/o Limitations [employer] [facility] [employer] ([facility])(O tolaryn gology) [facility] [employer] ([facility])(Aud iology) OUTPATIENT [id number] hearing test per EAGLE Jacobo 04/10 Released w/o Limitations [facility] ([facility])(A udiolog y) [facility] [employer] [facility] OUTPATIENT [id number] yo physica l and discuss yr heart check up RIZWAN LOPEZ 07/01 Released w/o Limitations [facility] [employer] ([facility])(P ediatri cs) [facility] Medical [facility] TELE CONSULT [id number] bedwett ing ?s JESSICA BOSS 08/26 [facility] [employer] ([facility])(P ediatri cs) [facility] Medical [facility] [employer] ([facility])(Ped iatrics) OUTPATIENT [id number] f/u ears RIZWAN LOPEZ C 10/04 Released w/o Limitations [employer] ([facility])(P ediatri cs) [facility] [employer] ([facility])(Ped iatrics) OUTPATIENT [id number] throat pain is back RIZWAN LOPEZ 10/15 Released w/o Limitations [facility] [employer] ([facility])(P ediatri cs) [facility] Medical [facility] [employer] ([facility])(Ped iatrics) TELE CONSULT [id number] positiv e ISABELA Avery 10/17 [employer] ([facility])(P ediatri cs) [employer] ([facility])(Ped iatrics) OUTPATIENT [id number] immuniz at [facility] SEGUNDO 01/23 Released w/o Limitations [employer] ([facility])(P ediatri cs) [facility] [employer] ([facility])(Ped iatrics) OUTPATIENT [id number] ear infecti on RIZWAN LOPEZ Ju 01/27 Released w/o Limitations [employer] ([facility])(P ediatri cs) [facility] [employer] ([facility])(Ped iatrics) OUTPATIENT [id number] [phone] 5/wakes up crying at night ANAOREtienne RIZWAN 04/11 Released w/o Limitations [employer] ([facility])(P ediatri cs) [facility] [employer] ([facility])(Ped iatrics) OUTPATIENT [id number] ears [phone] [facility] 04/28 Released w/o Limitations [employer] ([facility])(P ediatri cs) [facility] [employer] ([facility])(Ped iatrics) TELE CONSULT [id number] REFERRA L FOR ENT RANDOLPH GOLD 04/30 [facility] [employer] ([facility])(P ediatri cs) [facility] [employer] ([facility])([place] laryngolo gy) OUTPATIENT [id number] ear SAMY WALKER 05/15 Released w/o Limitations [employer] ([facility])(O tolaryn gology) [employer] ([facility])([place] laryngolo gy) OUTPATIENT [id number] f/u ears SAMY WALKER S 06/11 Released w/o Limitations [employer] ([facility])(O tolaryn gology) [facility] [employer] ([facility])(Ped iatrics) OUTPATIENT [id number] THROAT CULTURE LILLIE CEJA 08/05 Released w/o Limitations [employer] ([facility])(P ediatri cs) [employer] [facility] [employer] ([facility])([place] laryngolo gy) OUTPATIENT [id number] 18 mo f/u bmt SAMY WALKER 08/21 Released w/o Limitations [address] [place] [address] [facility] ([facility])(O tolaryn gology) [address] [place] [address] [facility]Ped iatrics) OUTPATIENT [id number] WELL CHECK UP AND JAREK PHYS. PH:[phone]*C RIZWAN LOPEZ 09/25 Released w/o Limitations [address] [place] [address] [facility])(P ediatri cs) [address] [place] [address] [facility])(Ped iatrics) OUTPATIENT [id number] terribl e pain in left ear TRISTAN ROD 10/29 Released w/o Limitations [address] [place] [address] [facility])(P ediatri cs) [address] [place] [address] [facility])(Ped iatrics) OUTPATIENT [id number] HEADACH ES. PH:[phone]*TRISTAN MOMIN 01/30 Released w/o Limitations [address] [place] [address] [facility])(P ediatri cs) [address] [place] [address] [facility])(Opt ometry) OUTPATIENT [id number] l# routine eye exam EVANGELINA MORRISSEY W 02/03 Released w/o Limitations [address] [place] [address] [facility] [facility])(O ptometr y) [address] [place] [address] [facility])(Ped iatrics) TELE CONSULT [id number] referra l request -pcm JESSICA Serrano 02/[address] [place] [address] [facility])(P ediatri cs) [address] [place] [address] [facility]Ped iatrics) TELE CONSULT [id number] ISABELA HIGGINBOTHAM 02/[address] [place] [address] [facility]P ediat[place] cs) [address] [place] [address] [facility])(Ped iatrics) TELE CONSULT [id number] TRISTAN VIRK 03/[address] [place] [address] [facility]P ediatri cs) [address] [place] [address] [facility])(Ped iatrics) TELE CONSULT [id number] EFMP ISABELA CORRALES 06/22 [employer] ([facility])(P ediatri cs) [employer] ([facility])(Ped iatrics) TELE CONSULT [id number] child having difficu lty in school, ALIZA Wynn 06/29 [employer] ([facility])(P ediatri cs) [employer] ([facility])(Ped iatrics) OUTPATIENT [id number] congest ion fever AGUILARGRETEL RAIN Francisco 07/06 Released w/o Limitations [employer] ([facility])(P ediatri cs) [employer] ([facility])(Ped iatrics) OUTPATIENT [id number] INITIAL ADHD RIZWAN LOPEZ 07/23 Released w/o Limitations [employer] ([facility])(P ediatri cs) [employer] ([facility])(Ped iatrics) TELE CONSULT [id number] request ing ADHD paper to be fax to BERYL Ortiz dr. 07/27 [employer] ([facility])(P ediatri cs) [employer] ([facility])(Ped iatrics) TELE CONSULT [id number] needs informa tion stating why [place] is being referra l to ALLA Barrett THERESA M 07/30 [employer] ([facility])(P ediatri cs) [employer] ([facility])(Ped iatrics) OUTPATIENT [id number] pain in right ear RIZWAN LOPEZ 08/27 Released w/o Limitations [employer] ([facility])(P ediatri cs) [employer] ([facility])(Ped iatrics) OUTPATIENT [id number] ear infecti on? [id number] GRETEL AGUILAR 09/07 Released w/o Limitations [employer] ([facility])(P ediatri cs) [employer] ([facility])(Ped iatrics) OUTPATIENT [id number] school physica l....[phone] RIZWAN LOPEZ 09/21 Released w/o Limitations [employer] ([facility])(P ediatri cs) [employer] ([facility])(Ped iatrics) OUTPATIENT [id number] rt ear pain RIZWAN LOPEZ 10/29 Released w/o Limitations [employer] ([facility])(P ediatri cs) [employer] [facility]Fam michelle Practice Non-GME FHI2) OUTPATIENT [id number] possibl e ear infecti on....[phone] ERICH AGUSTINA DIANE 12/17 Released w/o Limitations [employer] ([facility])(F amily Practic e Non-GME FHI2) [facility] [employer] ([facility])(Ped iatrics) OUTPATIENT [id number] ear pain... .[phone] GRETEL AGUILAR 12/20 Released w/o Limitations [employer] [facility] ([facility])(P ediatri cs) [facility] [employer] ([facility])(Ped iatrics) TELE CONSULT [id number] STAT- ENT referra l JESSICA BOSS 03/09 [facility] [employer] [facility] ([facility])(P ediatri cs) [facility] Medical [facility] [employer] ([facility])(Ped iatrics) TELE CONSULT [id number] referra l JESSICA BOSS 03/09 [facility] [employer] ([facility])(P ediatri cs) [facility] Medical [facility] [employer] ([facility])(Ped iatrics) TELE CONSULT [id number] new prescri ption SOTO VALLADARES 03/22 [facility] [employer] ([facility])(P ediatri cs) [facility] [employer] ([facility])(Ped iatrics) OUTPATIENT [id number] F/U on ADHD RIZWAN LOPEZ 04/05 Released w/o Limitations 375 [employer] ([facility])(P ediatri cs) [facility] Medical [facility] [employer] ([facility])(Ped iatrics) TELE CONSULT [id number] Call back - DAVID [place] 04/25 [employer] ([facility])(P ediatri cs) [employer] ([facility])(Sco tt [facility] Tm Blue) OUTPATIENT [id number] Ear pain [phone] PRINCE MEADOWS 05/03 Released w/o Limitations [facility] [employer] ([facility])(S cott [facility] Tm Blue) [facility] Medical [facility] [employer] ([facility])(Ped iatrics) OUTPATIENT [id number] f/u buidup earwax - VENUTEtienne RIZWAN C 06/06 Released w/o Limitations [employer] ([facility])(P ediatri cs) [facility] Medical [facility] [employer] ([facility])(Ped iatrics) OUTPATIENT [id number] Ear pain when lays down-tomlinson rgery 08April on ears [phone] VENUTI, RIZWAN C 06/23 Released w/o Limitations [facility] [employer] ([facility])(P ediatri cs) [facility] Medical [facility] [employer] ([facility])(Ped iatrics) TELE CONSULT [id number] request change in stratte ra 25mg ALIZA LAGUNA 07/[address] [place] [address] [employer] ([facility])(P ediatri cs) [address] [place] [address] [employer] ([facility])(Ped iatrics) TELE CONSULT [id number] Medicat ion concern s DAVID BOWIE 07/[address] [place] [address] [employer] ([facility])(P ediatri cs) [facility] Medical [facility] [employer] ([facility])(Ped iatrics) TELE CONSULT [id number] referra francisco GALINDO, DAVID 08/09 [facility] [employer] ([facility])(P ediatri cs) [facility] Medical [facility] [employer] ([facility])(Ped iatrics) TELE CONSULT [id number] Referra francisco GALINDO, DAVID 08/[address] [place] [address] [employer] ([facility])(P ediatri cs) [facility] Medical [facility] [employer] ([facility])(Ped iatrics) OUTPATIENT [id number] refill / fu on stratte ra for adhd RIZWAN LOPEZ C 11/08 Released w/o Limitations [employer] ([facility])(P ediatri cs) [facility] [employer] ([facility])(Ped iatrics) TELE CONSULT [id number] Flu T Con DAVID Richard 02/02 375 [employer] ([facility])(P ediatri cs) [address] [place] [address] [employer] ([facility])(Ped iatrics) TELE CONSULT [id number] diahrea every day DAVID BOWIE 06/01 [facility] [employer] ([facility])(P ediatri cs) [facility] [employer] ([facility])(Ped iatrics) OUTPATIENT [id number] Phy [phone] RIZWAN LOPEZ 08/29 Released w/o Limitations [facility] [employer] ([facility])(P ediatri cs) [facility] Medical [facility] [employer] ([facility])(Ped iatrics) OUTPATIENT [id number] Ear ache [phone] AGUILARGRETEL 10/24 Released w/o Limitations [facility] [employer] ([facility])(P ediatri cs) [facility] [employer] ([facility])(Ped iatrics) TELE CONSULT [id number] refill/ DAVID Canada 08/01 [facility] [employer] ([facility])(P ediatri cs) [facility] [employer] ([facility])(Ped iatrics) OUTPATIENT [id number] phy...[phone] RIZWAN LOPEZ 08/14 Released w/o Limitations [facility] [employer] ([facility])(P ediatri cs) [facility] [employer] ([facility])(Ped iatrics) TELE CONSULT [id number] Notes Entered by: JESS GONZALEZ 15 Apr 2011 1458 ------- ------- ------- - DAVID BOWIE 04/15 [employer] ([facility])(P ediatri cs) [facility] [employer] ([facility])(Ped iatrics) OUTPATIENT [id number] F/U ADHD MEDS... [id number] RIZWAN LOPEZ 04/25 Released w/o Limitations [address] [place] [address] Group Mike TAYLOR ([facility])(Kristy garrison) [address] [place] [address] Mike B [facility]Sco tt Peds Team Adalberto) TELE CONSULT [id number] Notes Entered by: Sherif CRUZ 25 Jun 2011 1441 ------- ------- ------- ------- -- Needs referra l to [facility] for heart f/u [id number] DAVID BOWIE 06/[address] [place] [address] Group Mike B [facility]S cott Peds Team Adalberto) [address] [place] [address] Mike Donnie [facility]Sco tt Peds Team Adalberto) TELE CONSULT [id number] Notes Entered by: MERE BOWERS 02 Jul 2011 1001 ------- ------- ------- ------- -- Chest congest ion Jessica cad tlt DAVID BOWIE 07/[address] [place] [address] Mike [facility]LL[facility]S cott Peds Team Adalberto) [address] [place] [address] [facility])(Sco tt Peds Team Adalberto) OUTPATIENT [id number] cough, congest ion RIZWAN LOPEZ 07/04 Released w/o Limitations [address] [place] [address] Mike B ([facility])(S cott Peds Team Adalberto) [address] [place] [address] Mike B ([facility])(Sco tt Peds Team Adalberto) OUTPATIENT [id number] physica l [phone] RIZWAN LOPEZ 09/04 Released w/o Limitations [address] [place] [address] [employer] ([facility])(S cott Peds Team Adalberto) [address] [place] [address] Mike B ([facility])(Sco tt Peds Team Adalberto) OUTPATIENT [id number] snoring [phone] RIZWAN LOPEZ 02/06 Released w/o Limitations [address] [place] [address] [employer] ([facility])(S cott Peds Team Adalberto) [address] [place] [address] Mike B ([facility])(Sco tt Peds Team Adalberto) TELE CONSULT [id number] Notes Entered by: NORI BOWMAN 06 Apr 2012 1243 ------- ------- ------- ------- -- Network Results -CARDIO LOGY 08/21/11 DAVID BOWIE 04/[address] [place] [address] [facility])(S cott Peds Team Adalberto) [address] [place] [address])([facility] tt Peds Team Adalberto) TELE CONSULT [id number] Notes Entered by: TRIPP MATAMOROS CIA 10 Apr 2012 1059 ------- ------- ------- ------- -- Refill allergy meds - ALIZA Real 04/[address] [place] [address] [facility] ([facility])(S cott Peds Team Adalberto) [address] [place] [address] [facility])([facility] tt Peds Team Adalberto) OUTPATIENT [id number] diarrhe a with stomach cramps x 5 days RIZWAN LOPEZ 05/13 Released w/o Limitations [address] [place] [address] [facility])(S cott Peds Team Adalberto) [address] [place] [address] [facility])([facility] tt Peds Team Adalberto) TELE CONSULT [id number] Notes Entered by: Sherif CRUZ 10 Jun 2012 1245 ------- ------- ------- ------- -- Calling about f/u lab on perisit es in stomach [id number] DAVID Canada 06/[address] [place] [address] Mike B [facility]S cott Peds Team Adalberto) [address] [place] [address] [facility] B 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 RIZWAN LOPEZ 09/[address] [place] [address] [facility])(S cott Peds Team Adalberto) [address] [place] [address] [facility])(Sco tt Peds Team Adalberto) OUTPATIENT [id number] rash lower back JEAN MARIE MONTEZ 10/22 Released w/o Limitations [address] [place] [address] Mike [facility] ([facility])(S cott Peds Team Adalberto) [address] [place] [address] ([facility])(Sco tt Peds Team Adalberto) OUTPATIENT [id number] f/u rash on lower back DEVONTE CARPENTER S 10/28 Released w/o Limitations [address] [place] [address])(S cott Peds Team [facility]) [address] [place] [address])(Sco tt Peds Team [facility]to) OUTPATIENT [id number] follow up for rash DEVONTE CARPENTER S 11/04 Released w/o Limitations [address] [place] [address])(S cott Peds Team [facility]) [address] [place] [address])(Sco tt Peds Team [facility]) OUTPATIENT [id number] rash, no change had meds, RIZWAN LOPEZ 11/25 Released w/o Limitations [address] [place] [address])(S cott Peds Team [facility]) [address] [place] [address])(Sco tt Peds Team [facility]) TELE CONSULT [id number] Notes Entered by: SHARLA MORRISON 24 Feb 2013 1553 ------- ------- ------- ------- -- Med renewal /Jessica / AGUSTINA BRAVO 02/[address] [place] [address] [facility])(S cott Peds Team Adalberto) [facility] [employer] ([facility])(Sco tt Peds Team Adalberto) OUTPATIENT [id number] ADHD-wi th refills RIZWAN LOPEZ 03/05 Released w/o Limitations [address] [place] [address] [employer] ([facility])(S cott Peds Team Adalberto) [address] [place] [address] [employer] ([facility])(Sco tt Peds Team Adalberto) OUTPATIENT [id number] jose m vergara physica l [id number] RIZWAN LOPEZ 05/20 Released w/o Limitations [address] [place] [address] [employer] ([facility])(S cott Peds Team Adalberto) [address] [place] [address] [employer] ([facility])([place] tt Peds Team [facility]al[facility]) TELE CONSULT [id number] Notes Entered by: GEORGE NOVA ELS 14 Feb 2014 1553 ------- ------- ------- ------- -- Prescri ption Update/ /Jessica //980.8 895 RASHARD BEAVERS 02/14 [facility] Medical Group [facility]S cott Peds Team Adalberto) [address] [place] [address] Group Mike [facility] tt Peds Team [facility]al[facility]) TELE CONSULT [id number] Notes Entered by: Sherif CRUZ 21 Feb 2014 1034 ------- ------- ------- ------- -- ADHD revalua tiabel Lopez RASHARD BEAVERS 02/21 [facility] [employer] ([facility])(S cott Peds Team Adalberto) [address] [place] [address] [employer] ([facility])(Sco tt Peds Team Adalberto) OUTPATIENT [id number] f/u ADHD RIZWAN LOPEZ 02/24 Released w/o Limitations [address] [place] [address] [employer] ([facility])(S cott Peds Team Adalberto) [address] [place] [address] [employer] ([facility])(Sco tt Peds Team [employer]al[facility]) TELE CONSULT [id number] Notes Entered by: MERE BOWERS 07 Mar 2014 1005 ------- ------- ------- ------- -- Request latesha urrutia in Marie tracy Venuti [phone] RASHARD BEAVERS 03/[address] [place] [address])(S cott Peds Team [facility]) [address] [place] [address])([place] Peds Team [facility]) TELE CONSULT [id number] Notes Entered by: RACHEL PRATT 29 Mar 2014 1047 ------- ------- ------- ------- -- Med refill/ venuti/ VINNIE THORNTON 03/[address] [place] [address])(S cott Peds Team Adalbetro) [address] [place] [address])([facility] tt Peds Team Adalberto) TELE CONSULT [id number] Notes Entered by: JESS GONZALEZ 29 Jun 2014 1528 ------- ------- ------- ------- -- Medicat ion renewal - Venuti - [phone] RASHARD BEAVERS 06/[address] [place] [address])(S cott Peds Team [facility]to) [address] [place] [address])([facility] tt Peds Team Adalberto) TELE CONSULT [id number] Notes Entered by: Ju CRUZ 05 Sep 2014 0929 ------- ------- ------- ------- -- Liver lab order/V enuti/6 [phone] cell TOM MORENO 09/05 Referred for Appointment [address] [place] [address])(S cott Peds Team [facility]) [address] [place] [address])([place] [facility] Peds Team [facility]) OUTPATIENT [id number] school physica l [phone] ROBINSON STEPHENS 09/12 Released w/o Limitations [address] [place] [address])(S cott Peds Team Adalberto) [facility] Medical Group [facility])([place] tt Peds Team Adal[facility]) TELE CONSULT [id number] Notes Entered by: LEXIS HELM 20 Sep 2014 1432 ------- ------- ------- ------- -- Med Renewal /Venuti / TOM MORENO 09/20 Referred for Appointment [facility] Medical Group [facility])(S cott Peds Team Adalberto) [address] [place] [address] Group [facility])([place] tt Peds Team [facility]) OUTPATIENT [id number] ADHD APPOINT MENT RIZWAN LOPEZ 10/13 Released w/o Limitations [address] [place] [address])(S cott Peds Team [facility]) [address] [place] [address])([place] [facility] Peds Team [facility]) TELE CONSULT [id number] Notes Entered by: LEONA HALE 04 Jan 2015 1013 ------- ------- ------- ------- -- Med renewal / Venuti/ TOM MORENO 01/04 Referred for Appointment [address] [place] [address] Group [facility])(S cott Peds Team Adalberto) [address] [place] [address])([place] tt Peds Team [facility]) TELE CONSULT [id number] Notes Entered by: Ju CRUZ 11 Jan 2015 0856 ------- ------- ------- ------- -- Med refill/ Venuti/ 618/ [phone] refer to closed tcon 2014 x8 pills left TOM MORENO 01/11 Referred for Appointment [address] [place] [address] Group [facility])(S cott Peds Team Adalberto) [address] [place] [address])(Fam michelle Med Tm B Non-AD BCC) OUTPATIENT [id number] school physica l PRESLEY GUSTAFSON 08/29 Released w/o Limitations [address] [place] [address])(F amily Med Tm B Non-AD BCC) [address] [place] [address])(War rior Op Med Cln Tm A Ad) OUTPATIENT [id number] Luis Carlos singh, Sleep Issues 980.889 5 SERINA THRASHER 11/30 Released w/o Limitations [address] [place] [address])(W arrior Op Med Cln Tm A Ad) [address] [place] [address])([facility] Op Med Cln Tm A Ad) TELE CONSULT [id number] Notes Entered by: Holli PEREZ 14 Dec 2015 0904 ------- ------- ------- ------- -- BERTA / barby veliz for PCM / Singlet on / LYDIA Traore 12/13 Referred for Appointment [address] [place] [address])(W arrior Op Med Cln Tm A Ad) [address] [place] [address])([facility] Op Med Cln Tm A Ad) TELE CONSULT [id number] Notes Entered by: ALBER PAGAN 19 Dec 2015 1011 ------- ------- ------- ------- -- Sleep study ALBER Edwards 12/18 Other Not Elsewhere Classified [address] [place] [address])(W arrior Op Med Cln Tm A Ad) [address] [place] [address])([facility] Op Med Cln Tm A Ad) TELE CONSULT [id number] Notes Entered by: LEANDER GREGORIO 06 Feb 2016 1011 ------- ------- ------- ------- -- Network results Pulharshila sugey/April p Medicin e 016 LARA BRIONES 02/[address] [place] [address])(W arrior Op Med Cln Tm A Ad) [address] [place] [address])(War rior Op Med Cln Tm A Ad) TELE CONSULT [id number] Notes Entered by: LEANDER GREGORIO 06 Mar 2016 1501 ------- ------- ------- ------- -- Network results Pulmona ry/Slee p Medicin e 016 SERINA SMALL 03/[address] [place] [address])(W arrior Op Med Cln Tm A Ad) [address] [place] [address])(War rior Op Med Cln Tm A Ad) TELE CONSULT [id number] Notes Entered by: LEXIS HELM 21 May 2016 0916 ------- ------- ------- ------- -- Sx - Fever/S ingleto n/980.8 895 LYDIA WILSON 05/21 Referred for Appointment [address] [place] [address])(W arrior Op Med Cln Tm A Ad) [address] [place] [address])(War rior Op Med Cln Tm A Ad) OUTPATIENT [id number] Fever, Cough, and Nasal Congest ion, 980.889 5 SERINA THRASHER 05/21 Released w/o Limitations [address] [place] [address])(W arrior Op Med Cln Tm A Ad) [address] [place] [address])(War rior Op Med Cln Tm A Ad) TELE CONSULT [id number] Notes Entered by: IVELISSE PRABHAKAR 20 Jun 2016 0942 ------- ------- ------- ------- -- Network Results Pulmona ry Sleep Medicin e 7 SERINA LANGE 06/[address] [place] [address])(W arrior Op Med Cln Tm A Ad) [address] [place] [address])(War rior Op Med Cln Tm A Ad) OUTPATIENT [id number] school/ sports physica l / SERINA THRASHER 08/14 Released w/o Limitations [address] [place] [address])(W arrior Op Med Cln Tm A Ad) [address] [place] [address])(War rior Op Med Cln Tm A Ad) OUTPATIENT [id number] Pain on top of right(? -MOP not sure) foot [id number] [phone] LARA KINSEY 10/28 Released w/o Limitations [address] [place] [address])(W arrior Op Med Cln Tm A Ad) [address] [place] [address])(War rior Op Med Cln Tm A Ad) TELE CONSULT [id number] Notes Entered by: LEXIS HELM 18 Dec 2016 0848 ------- ------- ------- ------- -- Sx - Sx persist - R foot pain (appt refusal )/Jocelyn boyd/618. 980.889 LYDIA AGUIRRE 12/18 Referred for Appointment [address] [place] [address] Group [facility])(W arrior Op Med Cln Tm A Ad) [address] [place] [address])(War rior Op Med Cln Tm A Ad) TELE CONSULT [id number] Notes Entered by: Eula HORTA 19 Dec 2016 1201 ------- ------- ------- ------- -- R Foot X-ray/M RI Request -SX- R Foot pain persist / Trav / [phone] Keisha - LYDIA Araujo 12/19 Referred for Appointment [address] [place] [address])(W arrior Op Med Cln Tm A Ad) [address] [place] [address])(War rior Op Med Cln Tm A Ad) TELE CONSULT [id number] Notes Entered by: GEOFFREY ALFREDO 25 Dec 2016 0825 ------- ------- ------- ------- -- Referra francisco Schultz /Jackeline sung/[phone] /cl LYDIA WILSON 12/25 Referred for Appointment [address] [place] [address] [facility])(W arrior Op Med Cln Tm A Ad) [address] [place] [address])(War rior Op Med Cln Tm A Ad) TELE CONSULT [id number] Notes Entered by: RAGHU PEÑA 27 Dec 2016 1605 ------- ------- ------- ------- -- X-ray results KENNETH FUENTES 12/27 Referred for Appointment [address] [place] [address])(W arrior Op Med Cln Tm A Ad) [address] [place] [address])(War rior Op Med Cln Tm A Ad) TELE CONSULT [id number] Notes Entered by: Holli VASQUEZ 10 Jan 2017 0952 ------- ------- ------- ------- -- Network results Occupat ional/P hysical Therapy 12/25/16 MAGALI GASTELUM 01/[address] [place] [address] [facility])(W arrior Op Med Cln Tm A Ad) [address] [place] [address])(Fam michelle Med Tm B Non-AD BCC) OUTPATIENT [id number] Fever, body chills, 980.889 5 RENETTA GIBSB 05/23 Sick at Home/Quarter s [address] [place] [address])(F amily Med Tm B Non-AD BCC) [address] [place] [address] [facility])(Fam michelle Med Tm B Non-AD BCC) OUTPATIENT [id number] School - Sports 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 RENETTA GIBBS 09/09 Released w/o Limitations [address] [place] [address] [facility])(F amily Med Tm B Non-AD BCC) [address] [place] [address] [facility])(Sco tt [facility]) OUTPATIENT [id number] Depress ion, drug use AGUILAR DILLON 02/10 Released w/o Limitations [address] [place] [address] [facility])(S [facility]) [address] [place] [address] [facility])(Fam michelle Med Tm B Non-AD BCC) TELE CONSULT [id number] Notes Entered by: LEONA HALE 16 Aug 2020 0732 ------- ------- ------- ------- -- SAngela Moon/ Luc / [phone] TRICIACHARU HERNANDEZ MIKE 08/16 Referred for Appointment [address] [place] [address] [facility]F amily Med Tm B Non-AD BCC) [address] [place] [address] [facility])(Fam michelle Med Tm B Non-AD BCC) OUTPATIENT [id number] physica l [phone] MANUEL ALICEA 08/21 Released w/o Limitations [address] [place] [address] [facility])(F amily Med Tm B Non-AD BCC) [address] [place] [address] [facility])([facility] michelle Med Tm B Non-AD BCC) TELE CONSULT [id number] Notes Entered by: Dalila WALTER 27 Aug 2021 1456 ------- ------- ------- ------- -- Lab Order Request /Sebastian s/ TONIO OSBORNE 08/27 Other Not Elsewhere Classified [address] [place] [address] [facility])(F amily Med Tm B Non-AD BCC) [address] [place] [address] [facility])(Fam michelle Med Tm B Non-AD BCC) OUTPATIENT [id number] Virtual /lab result/ [id number] MANUEL ALICEA 09/14 Released w/o Limitations [address] [place] [address] [facility])(F amily Med Tm B Non-AD BCC) [address] [place] [address] [facility])(Fam michelle Med Tm B Non-AD BCC) TELE CONSULT [id number] Notes Entered by: IZZY LEHMAN 05 Dec 2021 0951 ------- ------- ------- ------- -- Lab Test Request - F/U Medicat ion/ Luc / COLTEN GUERRA 12/05 Referred for Appointment [address] [place] [address] [facility] amily Med Tm B Non-AD BCC) [address] [place] [address] [facility])(Fam michelle Med Tm B Non-AD BCC) TELE CONSULT [id number] Notes Entered by: IZZY LEHMAN 27 Dec 2021 1504 ------- ------- ------- ------- -- Med Renewal Request - F/U Lab Test Results / Luc / MANUEL ALICEA 12/[address] [place] [address] [facility] amily Med Tm B Non-AD BCC) [address] [place] [address] [facility])(Fam michelle Med Tm B Non-AD BCC) OUTPATIENT [id number] F2F - F/U labs MANUEL ALICEA 02/27 Released w/o Limitations [address] [place] [address] [facility] amily Med Tm B Non-AD BCC) [address] [place] [address] [facility])(Fam michelle Med Tm B Non-AD BCC) OUTPATIENT [id number] F2F - f/u on u/s of liver, complet ed in [facility], MANUEL ALICEA 03/26 Released w/o Limitations [address] [place] [address] [facility]F amily Med Tm B Non-AD BCC) Procedures Combined list of: 1) Procedures from Department of Veterans Affairs facilities going back up to thelast 18 months, not all VA non-surgical procedures are included; 2) All procedures from the Department of Defense facilities. Procedure Procedure Type Code Date Perfomer Comments Sourc e Health And Behav A e mt Each 15 Min Initial A e ment Health And Behav Assessmt Each 15 Min Initial Assessment [id number] AGUILAR LOFTON [facility] Non-Physician Phone Call To Patient/Provider Brief (5-10min) Non-Physician Phone Call To Patient/Provider Brief (5-10min) [id number] LYDIA WILSON [facility] Non-Physician Phone Call To Patient/Provider Brief (5-10min) Non-Physician Phone Call To Patient/Provider Brief (5-10min) [phone] LYDIA WILSON [facility] Non-Physician Phone Call To Patient/Provider Brief (5-10min) Non-Physician Phone Call To Patient/Provider Brief (5-10min) [phone] LYDIA WILSON [facility] Non-Physician Phone Call To Patient/Provider Brief (5-10min) Non-Physician Phone Call To Patient/Provider Brief (5-10min) [phone] LYDIA WILSON [facility] Non-Physician Phone Call To Patient/Provider Brief (5-10min) Non-Physician Phone Call To Patient/Provider Brief (5-10min) [phone] LYDIA WILSON [facility] Non-Physician Phone Call To Patient/Provider Brief (5-10min) Non-Physician Phone Call To Patient/Provider Brief (5-10min) [phone] TOM MORENO [facility] Non-Physician Phone Call To Patient/Provider Brief (5-10min) Non-Physician Phone Call To Patient/Provider Brief (5-10min) [phone] TOM MORENO [facility] Non-Physician Phone Call To Patient/Provider Brief (5-10min) Non-Physician Phone Call To Patient/Provider Brief (5-10min) [phone] TOM MORENO [facility] Screening Test Of Visual Acuity, Quantitative, Bilateral Screening Test Of Visual Acuity, Quantitative, Bilateral [phone] ROBINSON STEPHENS [facility] Non-Physician Phone Call To Patient/Provider Brief (5-10min) Non-Physician Phone Call To Patient/Provider Brief (5-10min) [phone] RIZWAN LOPEZ [facility] Non-Physician Phone Call To Patient/Provider Brief (5-10min) Non-Physician Phone Call To Patient/Provider Brief (5-10min) [id number] VINNIE TOHRNTON [facility] Non-Physician Phone Call To Patient/Provider Brief (5-10min) Non-Physician Phone Call To Patient/Provider Brief (5-10min) [phone] RASHARD BEAVERS [facility] Non-Physician Phone Call To Patient/Provider Brief (5-10min) Non-Physician Phone Call To Patient/Provider Brief (5-10min) [phone] RASHARD BEAVERS [facility] Non-Physician Phone Call To Pt/Provider Lengthy (21-30 min) Non-Physician Phone Call To Pt/Provider Lengthy (21-30 min) [phone] AGUSTINA BRAVO [facility] Non-Physician Phone Call To Patient/Provider Brief (5-10min) Non-Physician Phone Call To Patient/Provider Brief (5-10min) [phone] DAVID JIMÉNEZ [facility] Non-Physician Phone Call To Patient/Provider Brief (5-10min) Non-Physician Phone Call To Patient/Provider Brief (5-10min) [phone] ALIZA JENSEN [facility] Developmental Testing Limited With Interpretation and Report 012 RIZWAN LOPEZ [facility] Immunization Administration One Vaccine Immunization Administration One Vaccine [id number] 011 RIZWAN LOPEZ [facility] Tdap Vaccine Tdap Vaccine 04281 011 RIZWAN LOPEZ [facility] Cerumen Removal Right Ear Curette 009 PRINCE MEADOWS [facility] Destruction Of Benign Lesion By Cryosurgery 009 PRINCE MEADOWS [facility] Vaccines Viral Varicella (Active) Vaccines Viral Varicella (Active) 59499 008 RIZWAN LOPEZ [facility] Immunization Administration One Vaccine Immunization Administration One Vaccine 12614 008 RIZWAN LOPEZ [facility] Destruction Of Flat Warts By Cryosurgery Up To 14 Lesions 008 GRETEL AGUILAR [facility] Developmental Testing Limited With Interpretation and Report 008 RIZWAN LOPEZ [facility] Determination Of Refractive State Determination Of Refractive State [id number] EVANGELINA MORRISSEY [facility] Ophthalmological New Patient Start Comprehensive Care Ophthalmological New Patient Start Comprehensive Care [phone] EVANGELINA MORRISSEY [facility] Hep A Vac Ped/Adol Dosage (Intramusc Use) 2 Dose Schedule Hep A Vac Ped/Adol Dosage (Intramusc Use) 2 Dose Schedule [phone] EMMA SEGUNDO [facility] Immunization Administration One Vaccine Immunization Administration One Vaccine 80753 007 EMMA SEGUNDO [facility] Rapid Antigen Identification Streptococcus Group A Beta Hemolytic Rapid Antigen Identification Streptococcus Group A Beta Hemolytic [phone] LILLIE CEJA [facility] Postoperative Visit, Without Charge Postoperative Visit, Without Charge [phone] SAMY WALKER [facility] Cerumen Removal 007 SAMY WALKER [facility] Rapid Antigen Identification Streptococcus Group A Beta Hemolytic Rapid Antigen Identification Streptococcus Group A Beta Hemolytic 91825 006 RIZWAN LOPEZ Oropharynx Culture Streptococcus Group A Beta Hemolytic Oropharynx Culture Streptococcus Group A Beta Hemolytic 44315 006 RIZWAN LOPEZ [facility] Comprehensive Audiometry Comprehensive Audiometry 25806 006 EAGLE HENDRIX [facility] Tympanometry Tympanometry 72700 006 EAGLE HENDRIX Postoperative Visit, Without Charge Postoperative Visit, Without Charge 35791 006 SAMY WALKER [facility] Threshold Audiogram (Pure Tone) Threshold Audiogram (Pure Tone) 45886 005 OVIEDO, JESSICA B Thad Audiometry Speech Threshold Audiometry Speech Threshold 63193 005 OVIEDO, JESSICA B DoD Evoked Otoacoustic [place] ions Limited 005 OVIEDO, JESSICA B Thad Tympanometry Tympanometry 47996 005 OVIEDO, JESSICA B Thad Acoustic Reflex Testing 005 OVIEDO, JESSICA B DoD Tympanometry Tympanometry 20427 005 ERICK GRIMES Acoustic Reflex Testing 005 ERICK GRIMES Evoked Otoacoustic [place] ions Limited 005 ERICK GRIMES [facility] Threshold Audiogram (Pure Tone) Threshold Audiogram (Pure Tone) 81434 005 ERICK GRIMES Audiometry Speech Threshold With Discrimination Audiometry Speech Threshold With Discrimination 92603 005 CARRILLOERICK DIEGO [facility] Non-Physician Phone Call To Pt/Provider Intermed (11-20 min) Non-Physician Phone Call To Pt/Provider Intermed (11-20 min) [id number] CHARU CLARKE [facility] Non-Physician Phone Call To Patient/Provider Brief (5-10min) Non-Physician Phone Call To Patient/Provider Brief (5-10min) [phone] TONIO OSBORNE DoD Waiver services; not otherwise specified (NOS) MANUEL ALICEA DoD No data available for this section Ambulato ry Pharmacy Social History Combined list of available smoking, tobacco, and other social history from Department of Defense and Veterans Affairs facilities. Social History Type Response Date Comment Sour e This section is an empty social history section. DoD Assessment and Plan Combined list of future care activities from Department of Defense and Veterans Affairs facilities (e.g., assessment and plan notes, appointments, orders, and referrals). Additional future care activities may be listed in the Plan of Care section. Result Assessment and Plan Date Source Assessment and Plan No data available for this section 09/06/2024 Ambulatory Pharmacy Functional Status Combined list of recent functional and cognitive assessments recorded at Department of Defense and Veterans Affairs (VA).VA Functional [place] Measurement (FIM) Scale: 1 = Total Assistance (Subject = 0% +), 2 = Maximal Assistance (Subject = 25% +), 3 = Moderate Assistance (Subject = 50% +), 4 = Minimal Assistance (Subject = 75% +), 5 = Supervision, 6 = Modified [place] (Device), 7 = Complete [place] (Timely, Safely). Assessment Date/Time Source Assessment Type Assessment Skill Assessment Score Assessment Details No data available for this section
[2024-09-06 17:53] VITALS: BP 156/86; PULSE 120; RESP 18; TEMP 37.7; O2SAT 100
--- NOTE | 2024-09-06 17:57 | ED_ITS ---
HPI - Abdominal Pain General Chief Complaint: Abdominal Pain <Martita Ha PA-C - Last Filed: 09/06/24 17:59> Stated Complaint: diverticulitis <Martita Ha PA-C - Last Filed: 09/06/24 17:59> Time Seen by Provider: 09/06/24 17:50 <JENNIFER Grover Last Filed: 09/06/24 17:59> Focused HPI: Patient is a 23 y/o male, with PMH of former alcoholism, who presents to the ED with c/o LLQ abd pain. patient reports his pain 1st began on Friday. Described initially as a pain in his groin. Now more localized to left lower quadrant. History of diverticulitis and states this feels similar to previous episodes. Last bowel movement was today. Denies rectal bleeding or melena. Denies nausea, vomiting. Has had low-grade fever last night in today. GENERAL: Well-appearing, obese with BMI of 37.4, and in no acute distress. HEAD: Normocephalic, atraumatic. CHEST: Clear to auscultation. ?No respiratory distress. HEART: Regular rate and rhythm.? ABD: Mild TTP in LLQ, normoactive BS NEURO: ?Alert and oriented x3. Patient screened in triage and initial orders placed.? ?Additional care and disposition to be based upon?diagnostic testing and treatment. <Martita Ha PA-C - Last Filed: 09/06/24 17:59> Source: patient <Martita Ha PA-C - Last Filed: 09/06/24 17:59> Mode of arrival: ambulatory <JENNIFER Grover Last Filed: 09/06/24 17:59> Limitations: no limitations <Martita Ha PA-C - Last Filed: 09/06/24 17:59> History of Present Illness HPI narrative: agree with MSE <Phuong Lr MD - Last Filed: 09/06/24 21:44> Related Data Home Medications: Home Medications ?Medication ?Instructions ?Recorded ?Confirmed ?Last Taken ?Type No Home Medications 04/22/24 04/23/24 Unknown History <Martita Ha PA-C - Last Filed: 09/06/24 17:59> Allergies/Adverse Reactions: Allergies Allergy/AdvReac Type Severity Reaction Status Date / Time No Known Allergies Allergy Verified 04/22/24 08:55 <Martita Ha PA-C - Last Filed: 09/06/24 17:59> Review of Systems 2 Review of Systems: All systems reviewed & are unremarkable except as noted in HPI and below <Phuong Lr MD - Last Filed: 09/06/24 21:44> [facility] Past Medical History Medical History: Medical History Obesity CRISTY (obstructive sleep apnea) <Martita Ha PA-C - Last Filed: 09/06/24 17:59> Surgical History Surgical History: Surgical History History of placement of ear tubes <Martita Ha PA-C - Last Filed: 09/06/24 17:59> Social History Social History: Social History Smoking status: Current every day smoker Tobacco type: e-cigarettes/vaping Alcohol intake: former Alcohol use details: Pt states he was drinking a half bottle of liquor per day. Pt quit 03/04/24 Substance use: never Substance use type: does not use Do You Feel Safe in your Home?: Yes Lack of Transportation: No Lack of Food: Never True Current Housing: I Have Housing Concerned About Future Housing: No Difficulty Paying Gas/Electric Bills: No Difficulty Paying for Meds: No Currently Unemployed: No Education: High School Diploma/GED Difficulty w/ Childcare or Family Care: No Living arrangements: with family Gender identity (if verbalized by the patient): Male Spiritual care concerns: No <Martita Ha PA-C - Last Filed: 09/06/24 17:59> Exam 2 Narrative: EXAMINATION OF ORGAN SYSTEMS/BODY AREAS: Constitutional: Vital signs per nursing GENERAL:[No acute distress, non-toxic appearing.] HEAD: Normal with no signs of head trauma. EYES: EOMI, conjunctiva normal ENT: Hearing grossly intact LUNGS: Nonlabored breathing. HEART: [Regular rate and rhythm] ABD: [Soft], [nontender to palpation] EXT: Normal range of motion SKIN: [No rashes or lesions.] NEURO: [Alert and oriented x 3. No gross focal sensory or strength deficits.] PSYCH: Normal affect <Phuong Lr MD - Last Filed: 09/06/24 21:44> Course Vital Signs Vital signs: Vital Signs Temperature 99.9 F H 09/06/24 17:53 Pulse Rate 120 H 09/06/24 17:53 Respiratory Rate 18 09/06/24 17:53 Blood Pressure 156/86 H 09/06/24 17:53 Pulse Oximetry 100 09/06/24 17:53 Oxygen Delivery Room Air 09/06/24 17:53 Temperature 99.9 F H 09/06/24 17:53 Pulse Rate 120 H 09/06/24 17:53 Respiratory Rate 18 09/06/24 17:53 Blood Pressure 156/86 H 09/06/24 17:53 Pulse Oximetry 100 09/06/24 17:53 Oxygen Delivery Room Air 09/06/24 17:53 <Martita Ha PA-C - Last Filed: 09/06/24 17:59> Vital Signs Temperature 99.9 F H 09/06/24 17:53 Pulse Rate 120 H 09/06/24 17:53 Respiratory Rate 18 09/06/24 17:53 Blood Pressure 156/86 H 09/06/24 17:53 Pulse Oximetry 100 09/06/24 17:53 Oxygen Delivery Room Air 09/06/24 17:53 Temperature 99.9 F H 09/06/24 17:53 Pulse Rate 120 H 09/06/24 17:53 Respiratory Rate 18 09/06/24 17:53 Blood Pressure 156/86 H 09/06/24 17:53 Pulse Oximetry 100 09/06/24 17:53 Oxygen Delivery Room Air 09/06/24 17:53 <Phuong Lr MD - Last Filed: 09/06/24 21:44> MDM - Abdominal Pain MDM Narrative Medical decision making narrative: MSE by GENEVA in triage <Martita Ha PA-C - Last Filed: 09/06/24 17:59> MSE by GENEVA in triage I did review prior records including prior surgical notes. 23M h/o diverticulitis p/w LLQ pain; feels like prior episodes. No n/v/d, symptoms started 2 d ago but is actually not bad right now. Had prior colonoscopy which showed diverticulosis. On my exam, he had already gotten Tylenol from triage, and was reporting feeling pretty good, declined further pain medication. Labs notable for white count 15.[address] unfortunately does show perforated diverticulitis. Discussed with patient plan for admission, antibiotics, he is agreeable to this. This is ordered, discussed with surgeon, admitted to hospitalist. <Phuong Lr MD - Last Filed: 09/06/24 21:44> Lab Data Result diagrams: 09/06/24 18:18 09/06/24 18:18 <Martita Ha PA-C - Last Filed: 09/06/24 17:59> Labs: Lab Results 09/06/24 09/06/24 Range/Units 18:18 18:20 WBC 15.5 H (4.5-10.0) K/mm3 RBC 4.61 (4.6-6.20) M/mm3 Hgb 14.0 (14.0-18.0) g/dL Hct 42.4 (42.0-52.0) % MCV 92.0 (80-100) fl MCH 30.4 (26-34) pg MCHC 33.0 (32-36) g/dl RDW 15.7 H (11.5-14.5) % Plt Count 251 (150-375) k/mm3 MPV 9.7 (7.4-10.4) fl Immature Gran % (Auto) 0.4 (0-0.5) % Neut % (Auto) 82.6 H (45.5-73.1) % Lymph % (Auto) 10.6 L (18.3-44.2) % Collin % (Auto) 5.6 (2.6-8.5) % Eos % (Auto) 0.5 (0-4.4) % Baso % (Auto) 0.3 (0.2-1.2) % Lymph # (Auto) 1.64 (0.9-3.2) K/mm3 Collin # (Auto) 0.9 H (0.1-0.6) K/mm3 Eos # (Auto) 0.1 (0-0.3) K/mm3 Baso # (Auto) 0.1 (0.0-0.1) K/mm3 Abs Immat Gran (auto) 0.06 H (0.00-0.031) K/mm3 Absolute Neuts (auto) 12.8 H (1.3-6.7) K/mm3 Absolute Nucleated RBC 0.000 (0.0-0.012) K/mm3 Nucleated RBC % 0.0 (0.0-0.2) % Sodium 135 L (137-145) mmol/L Potassium 3.4 (3.4-5.0) mmol/L Chloride 99 (98-107) mmol/L Carbon Dioxide 26 (22-30) mmol/L Anion Gap 10 (4-12) mmol/L BUN 11 (9-20) mg/dL Creatinine 0.93 (0.7-1.3) mg/dL Estim Creat Clear Calc 169 ml/min Estimated GFR > 60 (59 - ) Glucose 106 (65-110) mg/dL Lactic Acid 1.1 (0.7-2.0) mmol/L Calcium 9.3 (8.4-10.2) mg/dL Total Bilirubin 0.9 (0.2-1.3) mg/dL AST 28 (17-59) U/L ALT 37 (6-50) U/L Alkaline Phosphatase 75 (38-126) U/L Total Protein 8.1 (6.3-8.2) g/dL Albumin 4.2 (3.5-5.1) g/dL Urine Color Dark yellow (Yellow) Urine Appearance Clear (Clear) Urine pH 6.0 (5.0-9.0) Ur Specific [place] 1.024 (1.001-1.035) Urine Protein 1+ H (Negative) mg/dL Urine Glucose (UA) Negative (Negative) mg/dL Urine Ketones Trace H (Negative) mg/dL Ur Blood (Man) Negative (Negative) Urine Nitrate Negative (Negative) Urine Bilirubin Negative (Negative) Urine Urobilinogen 1.0 (<2.0) mg/dL Leukocyte Esterase Rfl Negative (Negative) FABIO/UL Urine RBC 0-2 (0-2) /hpf Urine WBC 0-5 (0-3) /hpf Ur Squamous Epith Cells None seen (Few) /hpf Urine Bacteria None seen /hpf Urine Casts 0-2 <Martita Ha PA-C - Last Filed: 09/06/24 17:59> Lab Results 09/06/24 09/06/24 Range/Units 18:18 18:20 WBC 15.5 H (4.5-10.0) K/mm3 RBC 4.61 (4.6-6.20) M/mm3 Hgb 14.0 (14.0-18.0) g/dL Hct 42.4 (42.0-52.0) % MCV 92.0 (80-100) fl MCH 30.4 (26-34) pg MCHC 33.0 (32-36) g/dl RDW 15.7 H (11.5-14.5) % Plt Count 251 (150-375) k/mm3 MPV 9.7 (7.4-10.4) fl Immature Gran % (Auto) 0.4 (0-0.5) % Neut % (Auto) 82.6 H (45.5-73.1) % Lymph % (Auto) 10.6 L (18.3-44.2) % Collin % (Auto) 5.6 (2.6-8.5) % Eos % (Auto) 0.5 (0-4.4) % Baso % (Auto) 0.3 (0.2-1.2) % Lymph # (Auto) 1.64 (0.9-3.2) K/mm3 Collin # (Auto) 0.9 H (0.1-0.6) K/mm3 Eos # (Auto) 0.1 (0-0.3) K/mm3 Baso # (Auto) 0.1 (0.0-0.1) K/mm3 Abs Immat Gran (auto) 0.06 H (0.00-0.031) K/mm3 Absolute Neuts (auto) 12.8 H (1.3-6.7) K/mm3 Absolute Nucleated RBC 0.000 (0.0-0.012) K/mm3 Nucleated RBC % 0.0 (0.0-0.2) % Sodium 135 L (137-145) mmol/L Potassium 3.4 (3.4-5.0) mmol/L Chloride 99 (98-107) mmol/L Carbon Dioxide 26 (22-30) mmol/L Anion Gap 10 (4-12) mmol/L BUN 11 (9-20) mg/dL Creatinine 0.93 (0.7-1.3) mg/dL Estim Creat Clear Calc 169 ml/min Estimated GFR > 60 (59 - ) Glucose 106 (65-110) mg/dL Lactic Acid 1.1 (0.7-2.0) mmol/L Calcium 9.3 (8.4-10.2) mg/dL Total Bilirubin 0.9 (0.2-1.3) mg/dL AST 28 (17-59) U/L ALT 37 (6-50) U/L Alkaline Phosphatase 75 (38-126) U/L Total Protein 8.1 (6.3-8.2) g/dL Albumin 4.2 (3.5-5.1) g/dL Urine Color Dark yellow (Yellow) Urine Appearance Clear (Clear) Urine pH 6.0 (5.0-9.0) Ur Specific [place] 1.024 (1.001-1.035) Urine Protein 1+ H (Negative) mg/dL Urine Glucose (UA) Negative (Negative) mg/dL Urine Ketones Trace H (Negative) mg/dL Ur Blood (Man) Negative (Negative) Urine Nitrate Negative (Negative) Urine Bilirubin Negative (Negative) Urine Urobilinogen 1.0 (<2.0) mg/dL Leukocyte Esterase Rfl Negative (Negative) FABIO/UL Urine RBC 0-2 (0-2) /hpf Urine WBC 0-5 (0-3) /hpf Ur Squamous Epith Cells None seen (Few) /hpf Urine Bacteria None seen /hpf Urine Casts 0-2 <Phuong Lr MD - Last Filed: 09/06/24 21:44> Imaging Data Radiologist's impression: ITS Impressions Abdomen/Pelvis CT 09/06/24 20:32 IMPRESSION: Acute sigmoid diverticulitis with a contained perforation and surrounding phlegmonous change, without a drainable fluid collection (at this time). Short- term follow-up is recommended. <Martita Ha PA-C - Last Filed: 09/06/24 17:59> ITS Impressions Abdomen/Pelvis CT 09/06/24 20:32 IMPRESSION: Acute sigmoid diverticulitis with a contained perforation and surrounding phlegmonous change, without a drainable fluid collection (at this time). Short- term follow-up is recommended. <Phuong rL MD - Last Filed: 09/06/24 21:44> Critical Care Time Critical Care Time Critical Care Time: Yes <Phuong Lr MD - Last Filed: 09/06/24 21:44> Total Critical Care Time: 31 <Phuong Lr MD - Last Filed: 09/06/24 21:44> Discharge Plan Discharge Clinical Impression: Diverticulitis of colon with perforation, Sepsis <Martita Ha PA-C - Last Filed: 09/06/24 17:59> Patient Disposition: Still a Patient <Martita Ha PA-C - Last Filed: 09/06/24 17:59> Condition: Stable <Martita Ha PA-C - Last Filed: 09/06/24 17:59> Patient Language: Kyrgyz <Martita Ha PA-C - Last Filed: 09/06/24 17:59> Prescriptions: No Action No Home Medications <Martita Ha PA-C - Last Filed: 09/06/24 17:59> Follow-up/Referrals: Umesh Smiley MD [Primary Care Provider] - <Martita Ha PA-C - Last Filed: 09/06/24 17:59>
[2024-09-06] MEDS: ACETAMINOPHEN 500 MG TABLET 1000 MG PO (18:12)
[2024-09-06 18:31] LABS: Basophils Absolute Auto 0.1 K/mm3 (0.0-0.1); Basophils Percent Auto 0.3 % (0.2-1.2); Eosinophils Absolute Auto 0.1 K/mm3 (0-0.3); Eosinophils Percent Auto 0.5 % (0-4.4); Hematocrit 42.4 % (42.0-52.0); Immature Granulocyte Absolute 0.06 K/mm3 (0.00-0.031); Immature Granulocyte Percent A 0.4 % (0-0.5); Lymphocytes Absolute Auto 1.64 K/mm3 (0.9-3.2); Lymphocytes Percent Auto 10.6 % (18.3-44.2); Mean Corpuscular Hemoglobin 30.4 pg (26-34); Mean Platelet Volume 9.7 fl (7.4-10.4); Monocytes Absolute Auto 0.9 K/mm3 (0.1-0.6); Monocytes Percent Auto 5.6 % (2.6-8.5); Neutrophils Absolute Auto 12.8 K/mm3 (1.3-6.7); Neutrophils Percent Auto 82.6 % (45.5-73.1); Platelet Count Result 251 k/mm3 (150-375); Red Blood Count 4.61 M/mm3 (4.6-6.20); Red Cell Distribution Width 15.7 % (11.5-14.5); White Blood Count 15.5 K/mm3 (4.5-10.0)
[2024-09-06 18:37] LABS: Add Urine Microscopic? YES; Appearance Urine Clear (Clear); Bacteria Urine None Seen /hpf; Bilirubin Urine Negative (Negative); Blood Urine Negative (Negative); Color Urine Dark Yellow (Yellow); Glucose Urine UA Negative (Negative); Ketones Urine Trace mg/dL (Negative); Leukocyte Esterase Ur Negative LEU/UL (Negative); Nitrate Urine Negative (Negative); Non Pathogenic Casts 0-2; Protein Urine 1+ mg/dL (Negative); RBC Urine 0-2 /hpf (0-2); Specific Grav Ur 1.024 (1.001-1.035); Squamous Epithelial Cell Urine None Seen /hpf (Few); WBC Urine 0-5 /hpf (0-3)
[2024-09-06 18:42] LABS: Alanine Aminotransferase 37 U/L (6-50); Albumin Level 4.2 g/dL (3.5-5.1); Alkaline Phosphatase 75 U/L (38-126); Anion Gap 10 mmol/L (4-12); Aspartate Amino Transferase 28 U/L (17-59); Bilirubin,Total 0.9 mg/dL (0.2-1.3); Blood Urea Nitrogen 11 mg/dL (9-20); Calcium 9.3 mg/dL (8.4-10.2); Carbon Dioxide 26 mmol/L (22-30); Chloride 99 mmol/L (98-107); Estimated CRCL calculation 169 ml/min; Estimated Glomerular Filt Rate > 60; Glucose 106 mg/dL (65-110); Lactic Acid Reflex 1.1 mmol/L (0.7-2.0); Potassium 3.4 mmol/L (3.4-5.0); Sodium 135 mmol/L (137-145); Total Protein 8.1 g/dL (6.3-8.2)
--- OUTSIDE RECORDS SUMMARY | 2024-09-06 19:28 | XMS_ITS | Continuity of Care Document ---
Author Organization [facility] Address [address] [place] [address] Phone Care Team Providers Care Communications Project Manager Name Role Phone Umesh Smiley MD Unavailable [...] Copied on Encounter OFFICE/OUTPA TIENT VISIT, EST [facility], [address] [place], [id number], [place] tel:[phone] [facility] rash1 (chief complaint) Allergic contact dermatitis due to other chemical products Baljit Calvo. [address], [address] , [place]. tel:[phone] OFFICE/OUTPA TIENT VISIT, [facility], [address], [place], [place], [id number], [place] tel:[phone] [facility] [place] abd pain (chief complaint) Diverticulitis of large intestine w/o abscess w/o bleeding Apr-3 0-202 5 Baljit Calvo. [address], [place], [place], [id number] , [place]. tel:[phone] OFFICE/OUTPA TIENT VISIT, [facility], [address], [place], [place], [id number], [place] tel:[phone] [facility] [place] glucose (chief complaint) HLP (chief complaint) LFT (chief complaint) iron (chief complaint) diverticul tisi1 (chief complaint) Mixed hyperlipidemiaHyper glycemiaFatty liverDisorder of iron metabolism, unspecifiedSolitary lung noduleAlcohol dependence, uncomplicated May- 0- 5 Baljit Calvo. [address], [place], [place], [id number] , [place]. [phone] OFFICE/OUTPA TIENT VISIT, [facility], [address], [place], [place], [id number], [place] tel:[phone] [facility] [place] alcohol1 (chief complaint) diverticul itis1 (chief complaint) Diverticulitis of intestine w/ abscess w/o bleedingAlcohol dependence, uncomplicated - 4 Baljit Calvo. [address], [place], [place], [address] , [place]. [phone] OFFICE/OUTPA TIENT VISIT, [facility], [address], [place], [place], [address], [place] tel:[phone] [facility] [place] diverticul itis1 (chief complaint) alcohol1 (chief complaint) Diverticulitis of intestine w/ abscess w/o bleedingAlcohol dependence, uncomplicated 4-202 4 Baljit Calvo. [address], [place], [place], [address] , [place]. [phone] OFFICE/OUTPA TIENT VISIT, EST [facility] [place], [address], [place], [place], [address], [place] tel:[phone] [facility] glucose1 (chief complaint) HLP (chief complaint) LFT (chief complaint) iron1 (chief complaint) diverticul itis1 (chief complaint) HyperglycemiaMixed hyperlipidemiaFatty liverDisorder of iron metabolism, unspecifiedAlcohol dependence, uncomplicatedDivert iculitis of intestine w/ abscess w/o bleeding 4 Baljit Calvo. [address], [place], [place], [address] , [place]. [phone] PREV VISIT, NEW, AGE 18-39 [facility] [place], [address], [place], [place], [address], [place] tel:[phone] [facility] [place] physical (chief complaint) Encounter for general adult medical exam w abnormal findingsDiverticuli tis of large intestine w/o abscess w/o bleedingFatty liverSolitary lung noduleAlcohol dependence, uncomplicated 4 Baljit Calvo. [address], [place], [place], [address] , [place]. tel:[phone] Family History Family Member Type Diagnosis Age At Onset Father Problem Alive and well Mother Problem Alive and well Sister Problem Alive and well Payers Payer name Insurance type Covered republican ID Patricia streeter(s) [facility] [id number] Social History Type Description Quantity Date Captured [...] Referred To: Luis Hong [address] [place] [address], [id number] Ordered: Referrals: Luis Hong. Evaluate and treat [...] high iron diverticulitis1 Pt has recent ac [place] diverticulitis. Pt was treated with abx. Pt [...] Mental Status Date Cognitive Assessment Orientation - [place] ed to time, place, person, situation.
--- OUTSIDE RECORDS SUMMARY | 2024-09-06 19:28 | XMS_ITS | Clinical Summary ---
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
--- OUTSIDE RECORDS SUMMARY | 2024-09-06 19:28 | XMS_ITS | Encounter Summary ---
Author Organization [facility] Healthcare Address [address] [place] [address] Care Team Providers Care Application Security Engineer Name Role Phone Marcel Calle Primary Care Provid er Reason for Visit * Reason Comments Abdominal Cramping Abdominal cramping x 3 days 100.4 temp last pm Encounter Details Date Type Department Care Team (Late st Contact Info) Description 09/06/2024 5:15 PM CDT Office Visit [facility] at [address] [phone] Elkin Bhatti NP [address] [place] [address] [address] [place] [address] Abdominal pain (Primary Dx); Elevated blood pressure reading in office without diagnosis of hypertension; Left lower quadrant abdominal tenderness without rebound tenderness; Tachycardia Social History Tobacco Use Types Packs/Day Years Used Date Smoking Tobacco: Never Assessed Sex and Gender Information Value Date Recorded Sex Assigned at Not on file 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
--- OUTSIDE RECORDS SUMMARY | 2024-09-06 19:28 | XMS_ITS | Referral Summary ---
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 CLAIMS [facility] CLAIMS Care Teams Stave Block Roller Relationship Specialty Start Date End Date Marcel Calle PA [address] [place] [address] PCP - General Physician Law Firm Partner 11/29/21
[2024-09-06] MEDS: LACTATED RINGERS 1,000 ML 999 ML IV CONT (20:12)
[2024-09-06 21:02] VITALS: BP 126/79; O2SAT 100
[2024-09-06 21:16] VITALS: BP 130/77; O2SAT 100
[2024-09-06 21:46] VITALS: BP 122/77; PULSE 102; RESP 18; O2SAT 100
[2024-09-06] MEDS: PIPERACILLN/TAZ 3.375GM/NS50ML 3.375 GM/50 ML BAG IVPB (22:20)
[2024-09-06 22:35] VITALS: BMI 37.6
[2024-09-06] MEDS: LACTATED RINGERS 1,000 ML 125 ML IV CONT (23:10)
--- NOTE | 2024-09-06 23:17 | ADMGEN ---
This patient, Maxwell Santos, was admitted to [facility] Surg Room 304-01. Patient/family oriented to hospital policies and general routines including ID bracelet, bed and alarms, visiting hours, pain management, procedures, bathroom and other care routines, personal items, smoking policy, room service/diet, and visiting hours. Information on how to activate the Rapid Response Team has been discussed. Patient/Family are encouraged to report perceived risks to care and to ask questions if they do not understand what they are told or what they should do.
[2024-09-06 23:55] VITALS: PULSE 102; RESP 18; O2SAT 100
[2024-09-07] VITALS: BP 149/81; PULSE 106; RESP 18; TEMP 36.9; O2SAT 99
[2024-09-07] MEDS: MORPHINE SULFATE (*CRX) 4 MG/ML INJ IV PUSH (00:42)
[2024-09-07] MEDS: PIPERACILLN/TAZ 3.375GM/NS50ML 3.375 GM/50 ML BAG IVPB ×4 (05:27→23:19)
--- NOTE | 2024-09-07 05:51 | P.HP_ITS ---
H&P: HPI History of Present Illness Date/Time: 09/07/24 01:00 Chief Complaint: Abdominal pain. Narrative: This is a 23-year-old male with history of diverticulitis in October 2023 and diverticulosis on colonoscopy in March who presented to the emergency department via private vehicle with complaints of abdominal pain. His pain began sometime on Friday and was mostly in the left groin at that time but has since localized to the left lower quadrant. The pain was similar to his prior episode of diverticulitis and he went on a bland, liquid diet without much benefit. The pain is getting worse and he is running a low-grade fever. He denies fever, vomiting, and blood in mucus in the stool. In the ED: Vital signs on arrival include a temperature 99.9?, blood pressure 156/86, pulse 120, respiratory rate 18, SpO2 100% on room air. Labs are significant for WBC count of 15.5, sodium 135, and lactic acid 1.1. CT of the abdomen and pelvis showed acute sigmoid diverticulitis with a contained perforation and surrounding phlegmonous change without a drainable fluid collection at this time. He was started on piperacillin-tazobactam and he is being admitted in this setting for further treatment of diverticulitis. Review of Systems Review of Systems: 12 systems were reviewed and are negativ e except for as per HPI. [facility] Past Medical History Medical History (Updated 09/07/24 @ 05:54 by Floridalma Mares PA-C) Diverticulitis Obstructive sleep apnea Obesity Surgical History Surgical History History of placement of ear tubes Social History Social History (Updated 09/07/24 @ 05:54 by Floridalma Mares PA-C) Social History: Surrogate medical decision maker: Kaylie Santos, mother. Code status: Full code. Smoking status: Never smoker Alcohol intake: former Alcohol use details: Pt states he was drinking a half bottle of liquor per day. 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 Spiritual care concerns: No Meds Home Medications and Allergies Home Medications ?Medication ?Instructions ?Recorded ?Confirmed ?Type clotrimazole-betamethasone 1 1 applic topical Q12H LLQ rash 09/06/24 09/06/24 History %-0.05 % topical cream Allergies Allergy/AdvReac Type Severity Reaction Status Date / Time No Known Allergies Allergy Verified 04/22/24 08:55 Vital Signs Vital Signs - 24 hr 09/06/24 17:53 09/06/24 21:02 09/06/24 21:16 Temperature 99.9 F H Pulse Rate 120 H Respiratory Rate 18 Blood Pressure 156/86 H 126/79 130/77 Pulse Oximetry 100 100 100 Oxygen Delivery Room Air 09/06/24 21:46 09/06/24 23:55 09/07/24 00:00 Temperature 98.5 F Pulse Rate 102 H 102 H 106 H Respiratory Rate 18 18 18 Blood Pressure 122/77 149/81 H Pulse Oximetry 100 100 99 Oxygen Delivery Room Air Exam Narrative: General: Mildly ill-appearing male sitting up in bed in no acute distress. Weight: 144 kg. BMI: 37.6. HEENT: PERRL, EOMI. Sclera anicteric. Tacky mucous membranes. Neck: Supple. Respiratory: Lungs are clear to auscultation bilaterally. Cardiovascular: Regular rate and rhythm with S1-S2. No murmur, rub, or gallop. Gastrointestinal: Abdomen is soft and nondistended with positive bowel sounds. He is tender to palpation, mainly in the left lower quadrant. No guarding or rebound tenderness. Skin: Warm and dry. No rash or lesions on limited exam. Extremities: No cyanosis, clubbing, or edema. Radial and pedal pulses intact. Neurological: Alert. Cranial nerves 2-12 are grossly intact. No gross focal deficits to casual conversation. Psychiatric: Pleasant and cooperative with normal mood and affect. Judgment and insight intact. H&P: Results Labs Labs: Short CBC 09/06/24 Range/Units 18:18 WBC 15.5 H (4.5-10.0) K/mm3 Hgb 14.0 (14.0-18.0) g/dL Hct 42.4 (42.0-52.0) % Plt Count 251 (150-375) k/mm3 BMP 09/06/24 18:18 Sodium 135 L Potassium 3.4 Chloride 99 Carbon Dioxide 26 BUN 11 Creatinine 0.93 Glucose 106 Calcium 9.3 Liver Function 09/06/24 Range/Units 18:18 Total Bilirubin 0.9 (0.2-1.3) mg/dL AST 28 (17-59) U/L ALT 37 (6-50) U/L Alkaline Phosphatase 75 (38-126) U/L Albumin 4.2 (3.5-5.1) g/dL Urine 09/06/24 Range/Units 18:20 Urine Color Dark yellow (Yellow) Urine Appearance Clear (Clear) Urine pH 6.0 (5.0-9.0) Ur Specific [place] 1.024 (1.001-1.035) Urine Protein 1+ H (Negative) mg/dL Urine Glucose (UA) Negative (Negative) mg/dL Imaging Abdomen/Pelvis CT 09/06/24 20:32 IMPRESSION: Acute sigmoid diverticulitis with a contained perforation and surrounding phlegmonous change, without a drainable fluid collection (at this time). Short- term follow-up is recommended. Assessment and Plan Assessment and plan (1) Diverticulitis of colon with perforation: Code(s): K57.20 - Diverticulitis of large intestine with perforation and abscess without bleeding Status: Acute (2) Obstructive sleep apnea: Code(s): G47.33 - Obstructive sleep apnea (adult) (pediatric) Status: Acute Plan The patient presented to the emergency department for evaluation of left lower quadrant pain and low-grade fever since Friday as detailed in HPI. Labs, imaging, EKG, and all reports were personally reviewed. Imaging showed findings of acute sigmoid diverticulitis with a contained perforation and surrounding phlegmonous change. He has been started on piperacillin-tazobactam. Continue IV fluid rehydration, bowel rest, and serial abdominal exams. Analgesics and antiemetics are available as needed. Surgery was consulted by the ED and their input is appreciated. CPAP will be provided for the patient to use while hospitalized. His home medications will be reviewed and resumed as appropriate. Findings and treatment plan were discussed with the patient. Questions were solicited and answered to satisfaction. The patient's medical management will be taken over by the hospitalist team in a.m. Quality VTE Prophylaxis VTE prophylaxis: pharmacologic ordered Hospitalist MIPS Advance Care Plan I have confirmed that the patient's Advanced Care Plan is present, code status is documented, or surrogate decision maker is listed in patient medical record.: Yes Medication Reconciliation I have utilized all available resources to obtain, update and review the patients current medications (includes all prescriptions, OTC, herbals, cannabis, and nutritional supplements).: Yes
[2024-09-07 06:00] VITALS: BP 157/74; PULSE 109; RESP 18; TEMP 36.8; O2SAT 99
[2024-09-07 06:35] LABS: Basophils Percent Auto 0.3 % (0.2-1.2); Eosinophils Absolute Auto 0.1 K/mm3 (0-0.3); Eosinophils Percent Auto 1.1 % (0-4.4); Hematocrit 38.6 % (42.0-52.0); Hemoglobin 12.5 g/dL (14.0-18.0); Immature Granulocyte Absolute 0.05 K/mm3 (0.00-0.031); Immature Granulocyte Percent A 0.4 % (0-0.5); Lymphocytes Absolute Auto 2.09 K/mm3 (0.9-3.2); Lymphocytes Percent Auto 15.8 % (18.3-44.2); Mean Corpuscular HGB Conc 32.4 g/dl (32-36); Mean Corpuscular Hemoglobin 30.3 pg (26-34); Mean Corpuscular Volume 93.7 fl (80-100); Mean Platelet Volume 10.3 fl (7.4-10.4); Monocytes Percent Auto 7.2 % (2.6-8.5); Neutrophils Percent Auto 75.2 % (45.5-73.1); Platelet Count Result 241 k/mm3 (150-375); Red Blood Count 4.12 M/mm3 (4.6-6.20); Red Cell Distribution Width 15.9 % (11.5-14.5); White Blood Count 13.3 K/mm3 (4.5-10.0)
[2024-09-07 07:02] LABS: Anion Gap 9 mmol/L (4-12); Blood Urea Nitrogen 9 mg/dL (9-20); Carbon Dioxide 25 mmol/L (22-30); Chloride 103 mmol/L (98-107); Estimated CRCL calculation 192 ml/min; Estimated Glomerular Filt Rate > 60; Glucose 87 mg/dL (65-110); Magnesium 2.3 mg/dL (1.6-2.3); Sodium 137 mmol/L (137-145)
--- NOTE | 2024-09-07 08:02 | P.PNIM_ITS ---
Progress Note: A&P Assessment and Plan (1) Diverticulitis of colon with perforation: Code(s): K57.20 - Diverticulitis of large intestine with perforation and abscess without bleeding Status: Acute Assessment and Plan: Pt to the ED c/o LLQ pain and low-grade fever since Friday -CT yielded: Acute sigmoid diverticulitis with a contained perforation and surrounding phlegmonous change, without a drainable fluid collection (at this time). Short-term follow-up is recommended. -Zosyn has been started -IVF/NPO -Serial abd exams -Analgesics and antiemetics are available as needed. -Surgery was consulted by the ED and their input is appreciated, re-consulted inpt today for recs for progression of sx. -Continue with daily labs, WBC downtrending since yesterday 15.5-->13.3 (2) Obstructive sleep apnea: Code(s): G47.33 - Obstructive sleep apnea (adult) (pediatric) Status: Acute Assessment and Plan: Continue itpt CPAP Plan Continue bowel rest, IVF hydration, and pain control. Pending surg recs Subjective Date/time seen: 09/07/24 1015 Interval history: Per ED provider: Patient is a 23 y/o male, with PMH of former alcoholism, who presents to the ED with c/o LLQ abd pain. patient reports his pain 1st began on Friday. Described initially as a pain in his groin. Now more localized to left lower quadrant. History of diverticulitis and states this feels similar to previous episodes. Last bowel movement was today. Denies rectal bleeding or melena. Denies nausea, vomiting. Has had low-grade fever last night in today. Per intake hospitalist: This is a 23-year-old male with history of diverticulitis in October 2023 and diverticulosis on colonoscopy in March who presented to the emergency department via private vehicle with complaints of abdominal pain. His pain began sometime on Friday and was mostly in the left groin at that time but has since localized to the left lower quadrant. The pain was similar to his prior episode of diverticulitis and he went on a bland, liquid diet without much benefit. The pain is getting worse and he is running a low-grade fever. He denies fever, vomiting, and blood in mucus in the stool. 09/07: Pt states that he is feeling much better today with bowel rest and IVF administration. Pt reports that he thinks that he could be able to do clear liquids this afternoon, but we will pend surg recs until change diet. Pt denies N/V/D or any other issues. Review of Systems Review of Systems: 12 systems were reviewed and are negativ e except for as per HPI. Exam Const: General: comfortable and no acute distress HENMT: Face/Nose/Sinus: Normal nares present Other: tacky mucus membranes Eyes: General: appearance normal, both eyes and all related structures Sclera: sclerae normal Neck: Neck: supple and no JVD Carotids: no bruits Resp: Effort & Inspection: normal respiratory effort Auscultation: clear to auscultation bilaterally Cardio: Rate: regular rate Rhythm: regular rhythm GI: Inspection: non-distended Auscultation: abnormal bowel sounds (hypoactive) Other: TTP to mild palpation over LLQ. No guarding or rebound tenderness. Skin: General skin exam: normal color and no rashes or lesions noted Wounds: no wounds Neuro: General: gait normal Motor exam (neuro): Normal motor muscle tone present throughout Sensory Exam: normal sensation Extrem: General: normal to inspection Psych: Mental Status: mental status grossly normal Affect: normal affect Objective Data Vital Signs Vital Signs: Vital Signs - 24 hr 09/06/24 17:53 09/06/24 21:02 09/06/24 21:16 Temperature 99.9 F H Pulse Rate 120 H Respiratory Rate 18 Blood Pressure 156/86 H 126/79 130/77 Pulse Oximetry 100 100 100 Oxygen Delivery Room Air 09/06/24 21:46 09/06/24 23:55 09/07/24 00:00 Temperature 98.5 F Pulse Rate 102 H 102 H 106 H Respiratory Rate 18 18 18 Blood Pressure 122/77 149/81 H Pulse Oximetry 100 100 99 Oxygen Delivery Room Air 09/07/24 06:00 Temperature 98.2 F Pulse Rate 109 H Respiratory Rate 18 Blood Pressure 157/74 H Pulse Oximetry 99 Oxygen Delivery Intake/Output Intake/Output: Intake & Output 09/04/24 09/05/24 09/06/24 09/07/24 23:59 23:59 23:59 23:59 Intake Total 1050 50 Balance 1050 50 Meds/Results Medications: Active Medications Generic Name Dose Route Start Last Admin Trade Name Freq PRN Reason Stop Dose Admin Enoxaparin Sodium 40 mg 09/07/24 09:00 Enoxaparin 40 Mg/0.4 Ml Syringe SUB-Q DAILY JAREK Piperacillin/Tazobactam/Dextrose 3.375 gm in 50 mls @ 100 mls/hr 09/07/24 06:00 09/07/24 05:57 Zosyn 3.375 Gm/Ns 50 Ml IVPB Infused Q6HR JAREK Infusion Lactated Ringer's 1,000 mls @ 125 mls/hr 09/06/24 21:45 09/06/24 23:10 Lr - Lactated Ringers Iv IV CONT 125 mls/hr .Q8H JAREK Administration Morphine Sulfate 4 mg 09/06/24 21:41 09/07/24 00:42 Morphine Sulfate (*Crx) 4 Mg/Ml Inj IV PUSH 4 mg Q2H PRN Administration Pain Rated 7-10 Morphine Sulfate 2 mg 09/06/24 22:54 Morphine Sulfate (*Crx) 2 Mg/Ml Inj IV PUSH Q4H PRN Pain Rated 4-6 Ondansetron HCl 4 mg 09/06/24 21:41 Ondansetron Inj 4 Mg/2 Ml Vial IV PUSH Q4H PRN Nausea Radiology Results: ITS Impressions Abdomen/Pelvis CT 09/06/24 20:32 IMPRESSION: Acute sigmoid diverticulitis with a contained perforation and surrounding phlegmonous change, without a drainable fluid collection (at this time). Short- term follow-up is recommended. Labs Labs: Laboratory Results - last 24 hr 09/06/24 09/06/24 09/07/24 18:18 18:20 05:36 WBC 15.5 H 13.3 H RBC 4.61 4.12 L Hgb 14.0 12.5 L Hct 42.4 38.6 L MCV 92.0 93.7 MCH 30.4 30.3 MCHC 33.0 32.4 RDW 15.7 H 15.9 H Plt Count 251 241 MPV 9.7 10.3 Immature Gran % (Auto) 0.4 0.4 Neut % (Auto) 82.6 H 75.2 H Lymph % (Auto) 10.6 L 15.8 L [place] % (Auto) 5.6 7.2 Eos % (Auto) 0.5 1.1 Baso % (Auto) 0.3 0.3 Lymph # (Auto) 1.64 2.09 [place] # (Auto) 0.9 H 1.0 H Eos # (Auto) 0.1 0.1 Baso # (Auto) 0.1 0.0 Abs Immat Gran (auto) 0.06 H 0.05 H Absolute Neuts (auto) 12.8 H 10.0 H Absolute Nucleated RBC 0.000 0.000 Nucleated RBC % 0.0 0.0 Sodium 135 L 137 Potassium 3.4 4.0 Chloride 99 103 Carbon Dioxide 26 25 Anion Gap 10 9 BUN 11 9 Creatinine 0.93 0.81 Estim Creat Clear Calc 169 192 Estimated GFR > 60 > 60 Glucose 106 87 Lactic Acid 1.1 Calcium 9.3 9.0 Magnesium 2.3 Total Bilirubin 0.9 AST 28 ALT 37 Alkaline Phosphatase 75 Total Protein 8.1 Albumin 4.2 Urine Color Dark yellow Urine Appearance Clear Urine pH 6.0 Ur Specific [place] 1.024 Urine Protein 1+ H Urine Glucose (UA) Negative Urine Ketones Trace H Ur Blood (Man) Negative Urine Nitrate Negative Urine Bilirubin Negative Urine Urobilinogen 1.0 Leukocyte Esterase Rfl Negative Urine RBC 0-2 Urine WBC 0-5 Ur Squamous Epith Cells None seen Urine Bacteria None seen Urine Casts 0-2 Quality VTE Prophylaxis VTE prophylaxis: pharmacologic ordered
[2024-09-07] MEDS: ENOXAPARIN 40 MG/0.4 ML SYRINGE SUB-Q (08:33)
[2024-09-07] MEDS: LACTATED RINGERS 1,000 ML 125 ML IV CONT ×2 (08:35→17:22)
[2024-09-07 14:00] VITALS: BP 140/72; PULSE 95; RESP 18; TEMP 36.8; O2SAT 100
--- NOTE | 2024-09-07 14:17 | P.CONGS_ITS ---
Assessment and Plan Assessment and plan (1) Diverticulitis of colon with perforation: Code(s): K57.20 - Diverticulitis of large intestine with perforation and abscess without bleeding Status: Acute Assessment and Plan: Patient presented to ED yesterday with 2 days of left lower quadrant pain that felt similar in quality to previous episode of diverticulitis. CT abd/pelv positive for acute sigmoid diverticulitis with a contained perforation and surrounding phlegmonous change, without a drainable fluid collection (at this time). WBC downtrending at 13.3. Continue IV Zosyn. Continue morphine PRN for pain. Maintain NPO status for now. No immediate surgical intervention necessary at this time. History of Present Illness Consult details Consult date: 09/07/24 Reason for consult: other (diverticulitis) Requesting physician: Bita Wise APRN Narrative: Patient is a 23 year old male with history of diverticulitis and alcoholism who we have been asked to see in consultation today for diverticulitis. He notes that he began having left lower quadrant pain Friday night that felt very similar to an episode he had last October, which was treated with outpatient antibiotics. He presented to the ED yesterday at CT showed evidence of acute sigmoid diverticulitis with contained perforation and surrounding phlegmonous change, without a drainable fluid collection at this time. WBC 13.3 today (down from 15.5 yesterday). Currently on Zosyn. Last BM was two hours ago. No associated nausea or vomiting. Afebrile. No history of abdominal surgeries. Patient has had a colonoscopy with Dr. Toure this past March that showed diverticulosis without perforation or abscess. Pain is currently well-managed. Currently NPO. [facility] Past Medical History Medical History Diverticulitis Obstructive sleep apnea Obesity Surgical History Surgical History History of placement of ear tubes Social History Social History Social History: Surrogate medical decision maker: Kaylie Santos, mother. Code status: Full code. Smoking status: Never smoker Alcohol intake: former Alcohol use details: Pt states he was drinking a half bottle of liquor per day. Pt quit 03/04/24 Substance use: never Substance use type: does not use Do You Feel Safe in your Home?: Yes Lack of Transportation: No Lack of Food: Never True Current Housing: I Have Housing Concerned About Future Housing: No Difficulty Paying Gas/Electric Bills: No Difficulty Paying for Meds: No Currently Unemployed: No Education: Bachelor's Degree Difficulty w/ Childcare or Family Care: No Living arrangements: with family Occupation/Education: student Additional occupation/education comments: Recently graduated with a degree in [employer]. Spiritual care concerns: No Meds Home Medications and Allergies Home Medications ?Medication ?Instructions ?Recorded ?Confirmed ?Type clotrimazole-betamethasone 1 1 applic topical Q12H LLQ rash 09/06/24 09/06/24 History %-0.05 % topical cream Allergies Allergy/AdvReac Type Severity Reaction Status Date / Time No Known Allergies Allergy Verified 04/22/24 08:55 Vital Signs Vital Signs - 24 hr 09/06/24 17:53 09/06/24 21:02 09/06/24 21:16 Temperature 99.9 F H Pulse Rate 120 H Respiratory Rate 18 Blood Pressure 156/86 H 126/79 130/77 Pulse Oximetry 100 100 100 Oxygen Delivery Room Air 09/06/24 21:46 09/06/24 23:55 09/07/24 00:00 Temperature 98.5 F Pulse Rate 102 H 102 H 106 H Respiratory Rate 18 18 18 Blood Pressure 122/77 149/81 H Pulse Oximetry 100 100 99 Oxygen Delivery Room Air 09/07/24 06:00 09/07/24 08:00 09/07/24 14:00 Temperature 98.2 F 98.2 F Pulse Rate 109 H 95 Respiratory Rate 18 18 Blood Pressure 157/74 H 140/72 Pulse Oximetry 99 100 Oxygen Delivery Room Air Exam 2 Const: General: comfortable and no acute distress HENMT: Mouth: Yes moist mucous membranes Eyes: General: appearance normal, both eyes and all related structures Neck: Neck: supple Resp: Effort & Inspection: normal respiratory effort Cardio: Rate: regular rate GI: Inspection: non-distended GI Palp: Yes Soft to palpation, Yes Tenderness to palpation present (GI) (Left lower quadrant tenderness) and No Guarding due to palpation present (GI) Skin: General skin exam: normal color and no rashes or lesions noted Neuro: Speech: normal speech Sensory Exam: normal sensation Extrem: General: normal to inspection Psych: Mental Status: mental status grossly normal Results Labs 09/07/24 05:36 09/07/24 05:36 Labs: Abnormal lab results 09/06/24 09/06/24 09/07/24 Range/Units 18:18 18:20 05:36 WBC 15.5 H 13.3 H (4.5-10.0) K/mm3 RBC 4.12 L (4.6-6.20) M/mm3 Hgb 12.5 L (14.0-18.0) g/dL Hct 38.6 L (42.0-52.0) % RDW 15.7 H 15.9 H (11.5-14.5) % Neut % (Auto) 82.6 H 75.2 H (45.5-73.1) % Lymph % (Auto) 10.6 L 15.8 L (18.3-44.2) % [place] # (Auto) 0.9 H 1.0 H (0.1-0.6) K/mm3 Abs Immat Gran (auto) 0.06 H 0.05 H (0.00-0.031) K/mm3 Absolute Neuts (auto) 12.8 H 10.0 H (1.3-6.7) K/mm3 Sodium 135 L (137-145) mmol/L Urine Protein 1+ H (Negative) mg/dL Urine Ketones Trace H (Negative) mg/dL Diabetes panel 09/06/24 09/07/24 Range/Units 18:18 05:36 Sodium 135 L 137 (137-145) mmol/L Potassium 3.4 4.0 (3.4-5.0) mmol/L Chloride 99 103 (98-107) mmol/L Carbon Dioxide 26 25 (22-30) mmol/L BUN 11 9 (9-20) mg/dL Creatinine 0.93 0.81 (0.7-1.3) mg/dL Glucose 106 87 (65-110) mg/dL Calcium 9.3 9.0 (8.4-10.2) mg/dL AST 28 (17-59) U/L ALT 37 (6-50) U/L Alkaline Phosphatase 75 (38-126) U/L Total Protein 8.1 (6.3-8.2) g/dL Albumin 4.2 (3.5-5.1) g/dL Calcium panel 09/06/24 09/07/24 Range/Units 18:18 05:36 Calcium 9.3 9.0 (8.4-10.2) mg/dL Albumin 4.2 (3.5-5.1) g/dL Pituitary panel 09/06/24 09/07/24 Range/Units 18:18 05:36 Sodium 135 L 137 (137-145) mmol/L Potassium 3.4 4.0 (3.4-5.0) mmol/L Chloride 99 103 (98-107) mmol/L Carbon Dioxide 26 25 (22-30) mmol/L BUN 11 9 (9-20) mg/dL Creatinine 0.93 0.81 (0.7-1.3) mg/dL Glucose 106 87 (65-110) mg/dL Calcium 9.3 9.0 (8.4-10.2) mg/dL Adrenal panel 09/06/24 09/07/24 Range/Units 18:18 05:36 Sodium 135 L 137 (137-145) mmol/L Potassium 3.4 4.0 (3.4-5.0) mmol/L Chloride 99 103 (98-107) mmol/L Carbon Dioxide 26 25 (22-30) mmol/L BUN 11 9 (9-20) mg/dL Creatinine 0.93 0.81 (0.7-1.3) mg/dL Glucose 106 87 (65-110) mg/dL Calcium 9.3 9.0 (8.4-10.2) mg/dL Total Bilirubin 0.9 (0.2-1.3) mg/dL AST 28 (17-59) U/L ALT 37 (6-50) U/L Alkaline Phosphatase 75 (38-126) U/L Total Protein 8.1 (6.3-8.2) g/dL Albumin 4.2 (3.5-5.1) g/dL All other labs normal.
--- NOTE | 2024-09-07 16:54 | P.CONGI_ITS ---
Assessment and Plan Assessment and plan (1) Diverticulitis of colon with perforation: Code(s): K57.20 - Diverticulitis of large intestine with perforation and abscess without bleeding Status: Acute Assessment and Plan: treated with iv abx, already feeling better surgical team planning to advance diet no need of acute surgical intervention but probably may benefit in near future to prevent more cases he just had colonoscopy earlier this year and no need to have another one as outpatient (2) Lower abdominal pain: Code(s): R10.30 - Lower abdominal pain, unspecified Status: Acute Assessment and Plan: improving (3) Leukocytosis: Code(s): D72.829 - Elevated white blood cell count, unspecified Status: Acute Assessment and Plan: on iv abx GI Consult Note Consult date/time: 09/07/24 16:54 Reason for consult: diverticulitis HPI: Maxwell Santos is a 23 year old male with history of first episode of diverticulitis in October 2023 then had colonoscopy in March [address] Toure only diverticulosis. He came here with new onset of lower abdominal pain. The pain began Friday initially left groin and now left lower quadrant, similar to his prior episode of diverticulitis. Pain got more severe and had low-grade fever. ED: Vital signs on arrival include a temperature 99.9?. Labs are significant for WBC count of 15.5, sodium 135, and lactic acid 1.1. CT of the abdomen and pelvis showed acute sigmoid diverticulitis with a contained perforation and surrounding phlegmonous change without a drainable fluid collection at this time, started on iv abx and already doing better. Review of Systems 2 Constitutional: Constitutional: Reports chills Eyes: Eyes: Denies blurry vision ENT: Reports Normal hearing present Cardiovascular: Cardiovascular: Denies chest pain Respiratory: Respiratory: Denies cough Gastrointestinal: Gastrointestinal: Reports abdominal pain Genitourinary: Genitourinary: Denies urinary incontinence Musculoskeletal: Musculoskeletal: Denies neck pain Integumentary/Breasts: Skin/Breast: Denies rash Neurologic: Denies Abnormal speech present Psychiatric: Psychiatric: Denies anxiety [facility] Past Medical History Medical History (Updated 09/07/24 @ 16:58 by Edd Brunson MD) Leukocytosis Lower abdominal pain Diverticulitis Obstructive sleep apnea Obesity Surgical History Surgical History History of placement of ear tubes Social History Social History Social History: Surrogate medical decision maker: Kaylie Santos, mother. Code status: Full code. Smoking status: Never smoker Alcohol intake: former Alcohol use details: Pt states he was drinking a half bottle of liquor per day. 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 Spiritual care concerns: No Meds Home Medications and Allergies Home Medications ?Medication ?Instructions ?Recorded ?Confirmed ?Type clotrimazole-betamethasone 1 1 applic topical Q12H LLQ rash 09/06/24 09/06/24 History %-0.05 % topical cream Allergies Allergy/AdvReac Type Severity Reaction Status Date / Time No Known Allergies Allergy Verified 04/22/24 08:55 Vital Signs Vital Signs - 24 hr 09/06/24 17:53 09/06/24 21:02 09/06/24 21:16 Temperature 99.9 F H Pulse Rate 120 H Respiratory Rate 18 Blood Pressure 156/86 H 126/79 130/77 Pulse Oximetry 100 100 100 Oxygen Delivery Room Air 09/06/24 21:46 09/06/24 23:55 09/07/24 00:00 Temperature 98.5 F Pulse Rate 102 H 102 H 106 H Respiratory Rate 18 18 18 Blood Pressure 122/77 149/81 H Pulse Oximetry 100 100 99 Oxygen Delivery Room Air 09/07/24 06:00 09/07/24 08:00 09/07/24 14:00 Temperature 98.2 F 98.2 F Pulse Rate 109 H 95 Respiratory Rate 18 18 Blood Pressure 157/74 H 140/72 Pulse Oximetry 99 100 Oxygen Delivery Room Air Exam 2 Const: General: comfortable and no acute distress HENMT: Mouth: Yes moist mucous membranes Eyes: General: appearance normal, both eyes and all related structures Neck: Neck: supple Resp: Effort & Inspection: normal respiratory effort Cardio: Rate: regular rate GI: Inspection: non-distended GI Palp: Yes Soft to palpation, Yes Tenderness to palpation present (GI) (Left lower quadrant tenderness) and No Guarding due to palpation present (GI) Skin: General skin exam: normal color and no rashes or lesions noted Neuro: Speech: normal speech Sensory Exam: normal sensation Extrem: General: normal to inspection Psych: Mental Status: mental status grossly normal Results Labs 09/07/24 05:36 09/07/24 05:36 Labs: Short CBC 09/06/24 09/07/24 Range/Units 18:18 05:36 WBC 15.5 H 13.3 H (4.5-10.0) K/mm3 Hgb 14.0 12.5 L (14.0-18.0) g/dL Hct 42.4 38.6 L (42.0-52.0) % Plt Count 251 241 (150-375) k/mm3 [facility] 09/06/24 09/07/24 18:18 05:36 Sodium 135 L 137 Potassium 3.4 4.0 Chloride 99 103 Carbon Dioxide 26 25 BUN 11 9 Creatinine 0.93 0.81 Glucose 106 87 Calcium 9.3 9.0 Liver Function 09/06/24 Range/Units 18:18 Total Bilirubin 0.9 (0.2-1.3) mg/dL AST 28 (17-59) U/L ALT 37 (6-50) U/L Alkaline Phosphatase 75 (38-126) U/L Albumin 4.2 (3.5-5.1) g/dL Urine 09/06/24 Range/Units 18:20 Urine Color Dark yellow (Yellow) Urine Appearance Clear (Clear) Urine pH 6.0 (5.0-9.0) Ur Specific [place] 1.024 (1.001-1.035) Urine Protein 1+ H (Negative) mg/dL Urine Glucose (UA) Negative (Negative) mg/dL
[2024-09-07 22:00] VITALS: BP 131/75; PULSE 89; RESP 18; TEMP 36.8; O2SAT 96
[2024-09-08] MEDS: LACTATED RINGERS 1,000 ML 125 ML IV CONT (02:28)
[2024-09-08] MEDS: PIPERACILLN/TAZ 3.375GM/NS50ML 3.375 GM/50 ML BAG IVPB ×2 (05:14→12:10)
[2024-09-08 06:00] VITALS: BP 129/52; PULSE 78; RESP 18; TEMP 36.4; O2SAT 98
[2024-09-08 09:14] LABS: Basophils Percent Auto 0.4 % (0.2-1.2); Eosinophils Absolute Auto 0.3 K/mm3 (0-0.3); Eosinophils Percent Auto 2.8 % (0-4.4); Hematocrit 37.4 % (42.0-52.0); Hemoglobin 12.2 g/dL (14.0-18.0); Immature Granulocyte Absolute 0.03 K/mm3 (0.00-0.031); Immature Granulocyte Percent A 0.3 % (0-0.5); Lymphocytes Absolute Auto 1.78 K/mm3 (0.9-3.2); Lymphocytes Percent Auto 19.2 % (18.3-44.2); Mean Corpuscular HGB Conc 32.6 g/dl (32-36); Mean Corpuscular Hemoglobin 30.3 pg (26-34); Mean Platelet Volume 9.6 fl (7.4-10.4); Monocytes Absolute Auto 0.8 K/mm3 (0.1-0.6); Monocytes Percent Auto 8.4 % (2.6-8.5); Neutrophils Absolute Auto 6.4 K/mm3 (1.3-6.7); Neutrophils Percent Auto 68.9 % (45.5-73.1); Platelet Count Result 243 k/mm3 (150-375); Red Blood Count 4.02 M/mm3 (4.6-6.20); Red Cell Distribution Width 15.6 % (11.5-14.5); White Blood Count 9.3 K/mm3 (4.5-10.0)
[2024-09-08] MEDS: ENOXAPARIN 40 MG/0.4 ML SYRINGE SUB-Q (09:33)
[2024-09-08 09:36] LABS: Alanine Aminotransferase 25 U/L (6-50); Albumin Level 3.6 g/dL (3.5-5.1); Alkaline Phosphatase 68 U/L (38-126); Anion Gap 9 mmol/L (4-12); Aspartate Amino Transferase 23 U/L (17-59); Blood Urea Nitrogen 6 mg/dL (9-20); Carbon Dioxide 26 mmol/L (22-30); Chloride 104 mmol/L (98-107); Estimated CRCL calculation 208 ml/min; Estimated Glomerular Filt Rate > 60; Glucose 98 mg/dL (65-110); Potassium 4.3 mmol/L (3.4-5.0); Sodium 139 mmol/L (137-145); Total Protein 7.2 g/dL (6.3-8.2)
--- NOTE | 2024-09-08 10:27 | P.PNIM_ITS ---
Progress Note: A&P Assessment and Plan (1) Diverticulitis of colon with perforation: Code(s): K57.20 - Diverticulitis of large intestine with perforation and abscess without bleeding Status: Acute Assessment and Plan: Pt to the ED c/o LLQ pain and low-grade fever since Friday. -CT yielded: Acute sigmoid diverticulitis with a contained perforation and surrounding phlegmonous change, without a drainable fluid collection (at this time). Short-term follow-up is recommended. -Zosyn 3.375 gram IVPB q 6. -Low fiber diet, tolerating well. -Serial abd exams -Analgesics and antiemetics are available as needed. -Surgery was consulted by the ED and their input is appreciated, re-consulted inpt 09/07 for recs for progression of sx. -Continue with daily labs, WBC downtrending since yesterday 15.5-->13.3-->9.3. (2) Obstructive sleep apnea: Code(s): G47.33 - Obstructive sleep apnea (adult) (pediatric) Status: Acute Assessment and Plan: -Continue itpt CPAP Plan Continue bowel rest, IVF hydration, and pain control. Pending surg recs Subjective Date/time seen: 09/08/24 10:27 Interval history: Patient sitting up in bed. Patient reports pain in abdomen is a 1, frequent, cramping, and sharp. Patient denies chest pain, palpitations, nausea, or vomiting. Patient reports tolerating food well. Review of Systems Review of Systems: All systems reviewed & are unremarkable except as noted in HPI and below Exam Const: General: no acute distress and uncomfortable Resp: Effort & Inspection: normal respiratory effort Auscultation: clear to auscultation bilaterally Cardio: Rate: regular rate Rhythm: regular rhythm GI: GI Palp: Yes Soft to palpation and Yes Tenderness to palpation present (GI) (mild LLQ) Auscultation: normal bowel sounds Neuro: Speech: normal speech Extrem: General: no pedal edema Psych: Mental Status: mental status grossly normal Affect: normal affect Objective Data Vital Signs Vital Signs: Vital Signs - 24 hr 09/07/24 14:00 09/07/24 22:00 09/07/24 22:00 Temperature 98.2 F 98.2 F Pulse Rate 95 89 Respiratory Rate 18 18 Blood Pressure 140/72 131/75 Pulse Oximetry 100 96 96 Oxygen Delivery Room Air 09/08/24 06:00 Temperature 97.6 F Pulse Rate 78 Respiratory Rate 18 Blood Pressure 129/52 L Pulse Oximetry 98 Oxygen Delivery Intake/Output Intake/Output: Intake & Output 09/05/24 09/06/24 09/07/24 09/08/24 23:59 23:59 23:59 23:59 Intake Total 1050 3117 2148 Balance 1050 3117 2148 Meds/Results Medications: Active Medications Generic Name Dose Route Start Last Admin Trade Name Freq PRN Reason Stop Dose Admin Enoxaparin Sodium 40 mg 09/07/24 09:00 09/08/24 09:33 Enoxaparin 40 Mg/0.4 Ml Syringe SUB-Q 40 mg DAILY JAREK Administration Piperacillin/Tazobactam/Dextrose 3.375 gm in 50 mls @ 100 mls/hr 09/07/24 06:00 09/08/24 05:14 Zosyn 3.375 Gm/Ns 50 Ml IVPB 100 mls/hr Q6HR JAREK Administration Lactated Ringer's 1,000 mls @ 125 mls/hr 09/06/24 21:45 09/08/24 02:28 Lr - Lactated Ringers Iv IV CONT 125 mls/hr .Q8H JAREK Administration Morphine Sulfate 4 mg 09/06/24 21:41 09/07/24 00:42 Morphine Sulfate (*Crx) 4 Mg/Ml Inj IV PUSH 4 mg Q2H PRN Administration Pain Rated 7-10 Morphine Sulfate 2 mg 09/06/24 22:54 Morphine Sulfate (*Crx) 2 Mg/Ml Inj IV PUSH Q4H PRN Pain Rated 4-6 Ondansetron HCl 4 mg 09/06/24 21:41 Ondansetron Inj 4 Mg/2 Ml Vial IV PUSH Q4H PRN Nausea Radiology Results: ITS Impressions Abdomen/Pelvis CT 09/06/24 20:32 IMPRESSION: Acute sigmoid diverticulitis with a contained perforation and surrounding phlegmonous change, without a drainable fluid collection (at this time). Short- term follow-up is recommended. Labs Labs: Laboratory Results - last 24 hr 09/08/24 09:08 WBC 9.3 RBC 4.02 L Hgb 12.2 L Hct 37.4 L MCV 93.0 MCH 30.3 MCHC 32.6 RDW 15.6 H Plt Count 243 MPV 9.6 Immature Gran % (Auto) 0.3 Neut % (Auto) 68.9 Lymph % (Auto) 19.2 [place] % (Auto) 8.4 Eos % (Auto) 2.8 Baso % (Auto) 0.4 Lymph # (Auto) 1.78 [place] # (Auto) 0.8 H Eos # (Auto) 0.3 Baso # (Auto) 0.0 Abs Immat Gran (auto) 0.03 Absolute Neuts (auto) 6.4 Absolute Nucleated RBC 0.000 Nucleated RBC % 0.0 Sodium 139 Potassium 4.3 Chloride 104 Carbon Dioxide 26 Anion Gap 9 BUN 6 L Creatinine 0.74 Estim Creat Clear Calc 208 Estimated GFR > 60 Glucose 98 Calcium 9.0 Total Bilirubin 1.0 AST 23 ALT 25 Alkaline Phosphatase 68 Total Protein 7.2 Albumin 3.6 Quality VTE Prophylaxis VTE prophylaxis: pharmacologic ordered
--- NOTE | 2024-09-08 10:44 | P.PNGS_ITS ---
Progress Note: A&P Assessment and Plan (1) Diverticulitis of colon with perforation: Code(s): K57.20 - Diverticulitis of large intestine with perforation and abscess without bleeding Status: Acute Assessment and Plan: * Clinically improving with antibiotics. No abdominal pain today and minimal tenderness on exam. WBC count normalized. * Okay to discharge on oral antibiotics and a low-fiber diet today from a surgical standpoint. Follow-up in [address] Toure. Plan I have discussed the patient's case and plan of care with Dr. Toure. Subjective Subjective Date/Time Seen: 09/08/24 10:44 Patient reports: no new complaints, feels better, pain is less, flatus, bowel movement and afebrile Interval history: Patient admitted with diverticulitis with micro perforation after presenting to the ED 2 nights ago. He reports significant improvement in his abdominal pain. Not really having any abdominal pain this morning. He has not required any pain medications since 2 nights ago. No nausea or vomiting. Tolerating a low-fiber diet. White blood cell count normal today. Exam GI: Inspection: non-distended GI Palp: Yes Soft to palpation, Yes Tenderness to palpation present (GI) (Very mild left lower quadrant and suprapubic tenderness), No Guarding due to palpation present (GI) and No Rebound tenderness present Auscultation: normal bowel sounds Objective Data Vital Signs Vital Signs: Vital Signs - 24 hr 09/07/24 14:00 09/07/24 22:00 09/07/24 22:00 Temperature 98.2 F 98.2 F Pulse Rate 95 89 Respiratory Rate 18 18 Blood Pressure 140/72 131/75 Pulse Oximetry 100 96 96 Oxygen Delivery Room Air 09/08/24 06:00 Temperature 97.6 F Pulse Rate 78 Respiratory Rate 18 Blood Pressure 129/52 L Pulse Oximetry 98 Oxygen Delivery Intake/Output Intake/Output: Intake & Output 09/05/24 09/06/24 09/07/24 09/08/24 23:59 23:59 23:59 23:59 Intake Total 1050 3117 2148 Balance 1050 3117 2148 Meds/Results Medications: Active Medications Generic Name Dose Route Start Last Admin Trade Name Freq PRN Reason Stop Dose Admin Enoxaparin Sodium 40 mg 09/07/24 09:00 09/08/24 09:33 Enoxaparin 40 Mg/0.4 Ml Syringe SUB-Q 40 mg DAILY JAREK Administration Piperacillin/Tazobactam/Dextrose 3.375 gm in 50 mls @ 100 mls/hr 09/07/24 06:00 09/08/24 05:14 Zosyn 3.375 Gm/Ns 50 Ml IVPB 100 mls/hr Q6HR JAREK Administration Morphine Sulfate 4 mg 09/06/24 21:41 09/07/24 00:42 Morphine Sulfate (*Crx) 4 Mg/Ml Inj IV PUSH 4 mg Q2H PRN Administration Pain Rated 7-10 Morphine Sulfate 2 mg 09/06/24 22:54 Morphine Sulfate (*Crx) 2 Mg/Ml Inj IV PUSH Q4H PRN Pain Rated 4-6 Ondansetron HCl 4 mg 09/06/24 21:41 Ondansetron Inj 4 Mg/2 Ml Vial IV PUSH Q4H PRN Nausea Radiology Results: ITS Impressions Abdomen/Pelvis CT 09/06/24 20:32 IMPRESSION: Acute sigmoid diverticulitis with a contained perforation and surrounding phlegmonous change, without a drainable fluid collection (at this time). Short- term follow-up is recommended. Labs Labs: Laboratory Results - last 24 hr 09/08/24 09:08 WBC 9.3 RBC 4.02 L Hgb 12.2 L Hct 37.4 L MCV 93.0 MCH 30.3 MCHC 32.6 RDW 15.6 H Plt Count 243 MPV 9.6 Immature Gran % (Auto) 0.3 Neut % (Auto) 68.9 Lymph % (Auto) 19.2 [place] % (Auto) 8.4 Eos % (Auto) 2.8 Baso % (Auto) 0.4 Lymph # (Auto) 1.78 [place] # (Auto) 0.8 H Eos # (Auto) 0.3 Baso # (Auto) 0.0 Abs Immat Gran (auto) 0.03 Absolute Neuts (auto) 6.4 Absolute Nucleated RBC 0.000 Nucleated RBC % 0.0 Sodium 139 Potassium 4.3 Chloride 104 Carbon Dioxide 26 Anion Gap 9 BUN 6 L Creatinine 0.74 Estim Creat Clear Calc 208 Estimated GFR > 60 Glucose 98 Calcium 9.0 Total Bilirubin 1.0 AST 23 ALT 25 Alkaline Phosphatase 68 Total Protein 7.2 Albumin 3.6
[2024-09-08 14:00] VITALS: BP 133/72; PULSE 85; RESP 18; TEMP 36.9; O2SAT 98
--- NOTE | 2024-09-08 17:27 | P.DS_ITS ---
DS: Admitting Diagnosis Discharge Date 09/08/2024 Admitting Diagnosis Abdominal pain DS: Discharge Diagnosis Discharge Diagnosis (1) Diverticulitis of colon with perforation: Code(s): K57.20 - Diverticulitis of large intestine with perforation and abscess without bleeding Status: Acute (2) Diverticulitis of intestine with abscess: Qualifiers: Diverticulitis site: unspecified part of intestinal tract Diverticulitis bleeding: unspecified bleeding status Qualified Code(s): K57.80 - Diverticulitis of intestine, part unspecified, with perforation and abscess without bleeding Code(s): K57.80 - Diverticulitis of intestine, part unspecified, with perforation and abscess without bleeding Status: Acute (3) Obstructive sleep apnea: Code(s): G47.33 - Obstructive sleep apnea (adult) (pediatric) Status: Acute DS: Summary Hospital Course Hospital Course: This is a 23-year-old male with history of diverticulitis in October 2023 and diverticulosis on colonoscopy in March who presented to the emergency department with abdominal pain. In the ED: Vital signs on arrival include a temperature 99.9?, blood pressure 156/86, pulse 120, respiratory rate 18, SpO2 100% on room air. Labs are significant for WBC count of 15.5, sodium 135, and lactic acid 1.1. CT of the abdomen and pelvis showed acute sigmoid diverticulitis with a contained perforation and surrounding phlegmonous change without a drainable fluid collection at this time. He was started on piperacillin-tazobactam and he is being admitted in this setting for further treatment of diverticulitis. Patients pain improved. Patient started on a low fiber diet which he tolerated. Temp 98.4 F. Pulse 85. blood pressure 133/72. Patient discharged on oral antibiotics. Patient will follow up with surgery. Status at Discharge Functional status at discharge: independent ambulation Time Spent with Patient Time attestation: Total time spent providing and/or coordinating discharge services: Time spent: Greater than 30 minutes Exam Narrative: Exam Const: General: no acute distress and uncom fortable Resp: Effort & Inspectio n: normal respirat ory effort Auscul tation: clear to a uscultation bilate rally Cardio: Rate: regular rate Rhythm: regular rhythm GI: GI Palp: Yes Soft to palpation and Y es Tenderness to p alpation present ( GI) (mild LLQ) Au scultation: normal bowel sounds Neuro: Speech: normal spe ech Extrem: General: no pedal edema Psych: Mental Status: men gloria status grossly normal Affect: n ormal affect DS: Data Data Completed and Pending Labs on day of discharge: Labs from last 24 hours 09/08/24 09:08 WBC 9.3 RBC 4.02 L Hgb 12.2 L Hct 37.4 L MCV 93.0 MCH 30.3 MCHC 32.6 RDW 15.6 H Plt Count 243 MPV 9.6 Immature Gran % (Auto) 0.3 Neut % (Auto) 68.9 Lymph % (Auto) 19.2 [place] % (Auto) 8.4 Eos % (Auto) 2.8 Baso % (Auto) 0.4 Lymph # (Auto) 1.78 [place] # (Auto) 0.8 H Eos # (Auto) 0.3 Baso # (Auto) 0.0 Abs Immat Gran (auto) 0.03 Absolute Neuts (auto) 6.4 Absolute Nucleated RBC 0.000 Nucleated RBC % 0.0 Sodium 139 Potassium 4.3 Chloride 104 Carbon Dioxide 26 Anion Gap 9 BUN 6 L Creatinine 0.74 Estim Creat Clear Calc 208 Estimated GFR > 60 Glucose 98 Calcium 9.0 Total Bilirubin 1.0 AST 23 ALT 25 Alkaline Phosphatase 68 Total Protein 7.2 Albumin 3.6 Discharge Plan Discharge Attending physician on discharge: Arcadio Crooks Consulting providers: Bita Wise; Edd Brunson Discharging Clinician: Ayanna Daugherty Anticipated Discharge Date/Time: 09/08/24 17:26 Patient Disposition: Home Activity: may shower and as tolerated Diet: low fiber Discharge Instructions: * Follow-up with Dr. Medrano in 2 weeks in the office. Call for an appointment [phone] * Follow a low fiber diet x 2 weeks and then transition to a high fiber diet if doing well when you follow-up with the surgeon * supervisor phosphoric acid your antibiotics and take as prescribed. You may take an OTC probiotic while taking this medication as well. Call if you have any issues with the antibiotic. * Return to the ED if you develop abdominal pain, vomiting, or fevers. * You may take Tylenol as needed for pain Thank you for entrusting [facility] with your healthcare! Patient Instructions: Antibiotic Form, Amoxicillin/Clavulanate Potassium (By mouth), Low Fiber Diet (DC) Patient Language: Portuguese Stand Alone Forms: General Discharge Information Follow-up/Referrals: Noemi Medrano MD [Physician] - 2 Weeks Umesh Smiley MD [Primary Care Provider] - 1 Week Discharge Medications: New amoxicillin-pot clavulanate 875-125 mg tablet 1 tablet PO Q8H 10 Days Qty: 30 0RF Continued clotrimazole-betamethasone 1-0.05 % cream 1 applic TOPICAL Q12H Date of admission: 09/06/24 21:42 Primary Care Provider: Umesh Smiley Admitting Provider: Barbara Mackenzie Attending physician on admission: Barbara Mackenzie Condition: Stable Hospitalist MIPS Heart Failure (Exclusion) Patient has history of Heart Transplant or Left Ventricular Assistive Device?: No IF YES, STOP HERE Heart Failure (Qualifier) Patient has current or prior documentation of LVEF less than or equal to 40%, or mod/servere depressed LVSF?: No IF NO, STOP HERE
--- NOTE | 2024-09-08 18:10 | PC.NURSE ---
On 09/08/24, the HOME SERVICE DIRECTOR, Clare Galvan, provided care and completed [place] documentation on this patient. I have reviewed the HOME SERVICE DIRECTOR's documentation and agree with the findings.
--- NOTE | 2024-09-08 18:34 | P.PNGI_ITS ---
Progress Note: A&P Assessment and Plan (1) Diverticulitis of colon with perforation: Code(s): K57.20 - Diverticulitis of large intestine with perforation and abscess without bleeding Status: Acute Assessment and Plan: better, no more pain he can go home with oral antibiotics, then will need follow-up with surgery to discuss potential surgery in the future no need to repeat another colonoscopy, had one just few months ago (2) Lower abdominal pain: Code(s): R10.30 - Lower abdominal pain, unspecified Status: Acute (3) Leukocytosis: Code(s): D72.829 - Elevated white blood cell count, unspecified Status: Acute Subjective Date/time seen: 09/08/24 18:34 Interval history: pain is gone, doing better hoping to go home today Review of Systems Review of Systems: All systems reviewed & are unremarkable except as noted in HPI and below Exam Const: General: comfortable and no acute distress HENMT: Mouth: Yes moist mucous membranes Eyes: General: appearance normal, both eyes and all related structures Neck: Neck: supple Resp: Effort & Inspection: normal respiratory effort Cardio: Rate: regular rate GI: Inspection: non-distended GI Palp: Yes Soft to palpation, No Tenderness to palpation present (GI) and No Guarding due to palpation present (GI) Skin: General skin exam: normal color and no rashes or lesions noted Neuro: Speech: normal speech Sensory Exam: normal sensation Extrem: General: normal to inspection Psych: Mental Status: mental status grossly normal Objective Data Vital Signs Vital Signs: Vital Signs - 24 hr 09/07/24 22:00 09/07/24 22:00 09/08/24 06:00 Temperature 98.2 F 97.6 F Pulse Rate 89 78 Respiratory Rate 18 18 Blood Pressure 131/75 129/52 L Pulse Oximetry 96 96 98 Oxygen Delivery Room Air 09/08/24 08:00 09/08/24 14:00 Temperature 98.4 F Pulse Rate 85 Respiratory Rate 18 Blood Pressure 133/72 Pulse Oximetry 98 Oxygen Delivery Room Air Intake/Output Intake/Output: Intake & Output 09/05/24 09/06/24 09/07/24 09/08/24 23:59 23:59 23:59 23:59 Intake Total 1050 3117 3824 Balance 1050 3117 3824 Meds/Results Medications: Active Medications Generic Name Dose Route Start Last Admin Trade Name Freq PRN Reason Stop Dose Admin Enoxaparin Sodium 40 mg 09/07/24 09:00 09/08/24 09:33 Enoxaparin 40 Mg/0.4 Ml Syringe SUB-Q 40 mg DAILY JAREK Administration Piperacillin/Tazobactam/Dextrose 3.375 gm in 50 mls @ 100 mls/hr 09/07/24 06:00 09/08/24 12:40 Zosyn 3.375 Gm/Ns 50 Ml IVPB Infused Q6HR JAREK Infusion Morphine Sulfate 4 mg 09/06/24 21:41 09/07/24 00:42 Morphine Sulfate (*Crx) 4 Mg/Ml Inj IV PUSH 4 mg Q2H PRN Administration Pain Rated 7-10 Morphine Sulfate 2 mg 09/06/24 22:54 Morphine Sulfate (*Crx) 2 Mg/Ml Inj IV PUSH Q4H PRN Pain Rated 4-6 Ondansetron HCl 4 mg 09/06/24 21:41 Ondansetron Inj 4 Mg/2 Ml Vial IV PUSH Q4H PRN Nausea Radiology Results: ITS Impressions Abdomen/Pelvis CT 09/06/24 20:32 IMPRESSION: Acute sigmoid diverticulitis with a contained perforation and surrounding phlegmonous change, without a drainable fluid collection (at this time). Short-term follow-up is recommended. Labs Labs: Laboratory Results - last 24 hr 09/08/24 09:08 WBC 9.3 RBC 4.02 L Hgb 12.2 L Hct 37.4 L MCV 93.0 MCH 30.3 MCHC 32.6 RDW 15.6 H Plt Count 243 MPV 9.6 Immature Gran % (Auto) 0.3 Neut % (Auto) 68.9 Lymph % (Auto) 19.2 [place] % (Auto) 8.4 Eos % (Auto) 2.8 Baso % (Auto) 0.4 Lymph # (Auto) 1.78 [place] # (Auto) 0.8 H Eos # (Auto) 0.3 Baso # (Auto) 0.0 Abs Immat Gran (auto) 0.03 Absolute Neuts (auto) 6.4 Absolute Nucleated RBC 0.000 Nucleated RBC % 0.0 Sodium 139 Potassium 4.3 Chloride 104 Carbon Dioxide 26 Anion Gap 9 BUN 6 L Creatinine 0.74 Estim Creat Clear Calc 208 Estimated GFR > 60 Glucose 98 Calcium 9.0 Total Bilirubin 1.0 AST 23 ALT 25 Alkaline Phosphatase 68 Total Protein 7.2 Albumin 3.6
== END 2024-09-08 18:10 | disposition home or self-care (01) | DRG 392 ==
LOC: ANHED 21:44 → ANH3MEDSUR 22:13
PROVIDERS: Physician Assistant; Admitting Provider Internal Medicine; Emergency Provider Emergency Medicine; PCP Emergency Medicine; Visit Provider Nurse Practitioner Family
DX: K57.20 Diverticulitis of large intestine with perforation and abscess without bleeding (principal); G47.33 Obstructive sleep apnea (adult) (pediatric); F17.290 Nicotine dependence, other tobacco product, uncomplicated; F10.21 Alcohol dependence, in remission
CPT/HCPCS: 36415; 74177; 80048; 80053; 81001; 83605; 83735; 85025; 96361; 96365; 96375; 99285; A9270; J1650; J2270; J2543; J7120; Q9967